=== PATIENT | female | born 1975 | race Caucasian/White ===

== ENCOUNTER 2020-04-26 13:11 | Outpatient (REF) | payer OTHER, SELFPAY ==
--- NOTE | ~2020-04-26 | XR_ITS ---
EXAMINATION: XR FOOT, RIGHT CLINICAL INFORMATION: Pain COMPARISON: None TECHNIQUE: AP, lateral, and oblique views of the right foot. FINDINGS: Bone alignment is normal. No fracture or dislocation is seen. There are small osteophytes at the first MTP joint. Joint spaces are otherwise normal. Soft tissues are normal. XR/XR foot RT min 3V IMPRESSION: Small osteophytes at the first MTP joint otherwise unremarkable exam.
[2020-04-26 14:10] LABS: Hemoglobin 13.4 g/dl (12.0-16.0)
[2020-04-26 14:40] LABS: Alanine Aminotransferase 25 U/L (0-31); Albumin Level 4.8 g/dL (3.5-5.0); Alkaline Phosphatase 58 U/L (39-117); Anion Gap 14 (12-20); Aspartate Amino Transferase 22 U/L (5-31); Bilirubin Direct 0.2 mg/dL (0.0-0.5); Bilirubin Total 0.4 mg/dL (0.0-1.0); Blood Urea Nitrogen 17 mg/dL (9-16); Calcium 9.4 mg/dL (8.4-10.2); Carbon Dioxide 27 mmol/L (22-29); Chloride 103 mmol/L (96-108); Cholesterol 274 mg/dL; Estimated Glomerular Filt Rate > 60; Glucose Fasting 89 mg/dL (60-99); HDL Cholesterol 74 mg/dL; Potassium 4.6 mmol/L (3.3-5.1); Sodium 139 mmol/L (135-145); Total Protein 7.8 g/dL (6.5-8.0); Triglycerides 411 mg/dL
[2020-04-26 15:02] LABS: TSH reflex Free T4 3.11 uIU/mL (0.32-4.0)
== END 2020-04-26 13:12 | disposition home or self-care (01) ==
LOC: HO.HMGCX 13:11
PROVIDERS: PCP Internal Medicine; Visit Provider Internal Medicine
DX: M79.671 Pain in right foot (principal); I10 Essential (primary) hypertension; F41.8 Other specified anxiety disorders; E66.9 Obesity, unspecified
CPT/HCPCS: 36415; 73630; 80048; 80061; 80076; 84443; 85014; 85018

== ENCOUNTER 2020-08-24 11:53 | Outpatient (REF) | payer OTHER, SELFPAY ==
[2020-08-24 13:51] LABS: MANUAL DIFF FLAG NO
[2020-08-24 14:02] LABS: Basophils Percent Auto 0.5 % (0-2); Eosinophils Absolute Auto 0.3 X10*3/uL (0.0-0.4); Eosinophils Percent Auto 5.1 % (0-4); Hematocrit 40.6 % (37-47); Hemoglobin 12.9 g/dl (12.0-16.0); Imm Gran Abs Auto 0.01 X10*3/uL (0.00-0.03); Imm Gran Pct Auto 0.2 % (0.0-0.4); Lymphocytes Absolute Auto 1.6 X10*3/uL (1.2-4.9); Lymphocytes Percent Auto 27.3 % (20-40); Mean Corpuscular HGB Conc 31.8 g/dl (31.0-35.0); Mean Corpuscular Hemoglobin 30.7 pg (27.0-33.0); Mean Corpuscular Volume 96.7 fL (80-98); Mean Platelet Volume 12.3 fL (9.4-12.3); Monocytes Absolute Auto 0.5 X10*3/uL (0.1-1.2); Monocytes Percent Auto 8.6 % (2-11); Neutrophils Absolute Auto 3.3 X10*3/uL (2.0-8.3); Neutrophils Percent Auto 58.3 % (45-73); Platelet Count 200 X10*3/uL (160-400); Red Cell Distribution Width 13.5 % (11.0-16.0); White Blood Count 5.7 X10*3/uL (4.8-10.8)
[2020-08-24 14:27] LABS: Alanine Aminotransferase 27 U/L (0-31); Albumin Level 4.6 g/dL (3.5-5.0); Alkaline Phosphatase 57 U/L (39-117); Anion Gap 14 (12-20); Aspartate Amino Transferase 26 U/L (5-31); Bilirubin Total 0.4 mg/dL (0.0-1.0); Blood Urea Nitrogen 17 mg/dL (9-16); Calcium 9.5 mg/dL (8.4-10.2); Carbon Dioxide 28 mmol/L (22-29); Chloride 105 mmol/L (96-108); Estimated Glomerular Filt Rate > 60; Glucose Random 79 mg/dL (60-115); Potassium 4.7 mmol/L (3.3-5.1); Sodium 142 mmol/L (135-145); Total Protein 7.3 g/dL (6.5-8.0)
[2020-08-24 14:51] LABS: Ferritin 112 ng/mL (10-250); TSH reflex Free T4 3.12 uIU/mL (0.32-4.0)
[2020-08-24 14:54] LABS: Estimated Average Glucose 88 mg/dL; Hemoglobin A1c % 4.7 %
[2020-08-25 08:37] LABS: LDL Cholesterol Direct 114 mg/dL (<100)
== END 2020-08-24 11:54 | disposition home or self-care (01) ==
LOC: HO.HMGCLDS 11:53
PROVIDERS: PCP Internal Medicine; Visit Provider Internal Medicine
DX: L50.9 Urticaria, unspecified (principal); E66.9 Obesity, unspecified; F41.8 Other specified anxiety disorders; D64.9 Anemia, unspecified; F41.1 Generalized anxiety disorder; I10 Essential (primary) hypertension; M79.671 Pain in right foot; R63.1 Polydipsia
CPT/HCPCS: 36415; 80053; 82728; 83036; 83721; 84443; 85025

== ENCOUNTER 2020-09-11 15:07 | Emergency (ER) | payer OTHER, SELFPAY ==
--- NOTE | 2020-09-11 | ECG_ITS ---
Test Reason : CHEST PAIN Blood Pressure : / mmHG Vent. Rate : 066 BPM Atrial Rate : 066 BPM P-R Int : 138 ms QRS Dur : 090 ms QT Int : 406 ms P-R-T Axes : 059 033 036 degrees QTc Int : 425 ms Normal sinus rhythm Normal ECG When compared to the previous EKG of No significant changes seen Referred By: Generic ED Physician Electronically Signed By:Edis Ríos
--- NOTE | ~2020-09-11 | XR_ITS ---
EXAM: Chest x-ray HISTORY: SOB. TECHNIQUE: One view. COMPARISON: Chest 02/18/2018. FINDINGS: The lungs are well-expanded and clear. The heart size and pulmonary vascularity is normal. No gross bony abnormality seen. XR/XR chest 1V IMPRESSION: Unremarkable chest exam.
[2020-09-11 15:11] VITALS: BP 176/106; PULSE 81; RESP 18; TEMP 36.7; O2SAT 100; BMI 35.2
[2020-09-11 18:01] LABS: MANUAL DIFF FLAG NO
[2020-09-11 18:03] LABS: Basophils Percent Auto 0.4 % (0-2); Eosinophils Absolute Auto 0.3 X10*3/uL (0.0-0.4); Eosinophils Percent Auto 4.6 % (0-4); Hematocrit 38.6 % (37-47); Hemoglobin 12.5 g/dl (12.0-16.0); Imm Gran Abs Auto 0.02 X10*3/uL (0.00-0.03); Imm Gran Pct Auto 0.3 % (0.0-0.4); Lymphocytes Absolute Auto 1.5 X10*3/uL (1.2-4.9); Lymphocytes Percent Auto 21.3 % (20-40); Mean Corpuscular HGB Conc 32.4 g/dl (31.0-35.0); Mean Corpuscular Hemoglobin 30.7 pg (27.0-33.0); Mean Corpuscular Volume 94.8 fL (80-98); Mean Platelet Volume 11.6 fL (9.4-12.3); Monocytes Absolute Auto 0.6 X10*3/uL (0.1-1.2); Monocytes Percent Auto 8.6 % (2-11); Neutrophils Absolute Auto 4.6 X10*3/uL (2.0-8.3); Neutrophils Percent Auto 64.8 % (45-73); Platelet Count 200 X10*3/uL (160-400); Red Blood Count 4.07 X10*6/uL (4.20-5.50)
[2020-09-11 18:26] LABS: Alanine Aminotransferase 26 U/L (0-31); Albumin Level 4.5 g/dL (3.5-5.0); Alkaline Phosphatase 48 U/L (39-117); Anion Gap 15 (12-20); Aspartate Amino Transferase 20 U/L (5-31); Bilirubin Total 0.4 mg/dL (0.0-1.0); Blood Urea Nitrogen 21 mg/dL (9-16); Calcium 10.2 mg/dL (8.4-10.2); Carbon Dioxide 27 mmol/L (22-29); Chloride 102 mmol/L (96-108); Creatinine Clr Calc Pharmacy 124.9; Estimated Glomerular Filt Rate > 60; Glucose Random 111 mg/dL (60-115); Potassium 4.9 mmol/L (3.3-5.1); Sodium 139 mmol/L (135-145)
[2020-09-11 18:45] VITALS: BP 160/91; PULSE 70; RESP 16; O2SAT 98
--- NOTE | 2020-09-11 18:53 | ED_ITS ---
HPI - Allergic Reaction General Chief complaint: Dyspnea Stated complaint: diff breathing Time Seen by Provider: 09/11/20 18:49 Source: patient Limitations: no limitations History of Present Illness HPI narrative: History of recurrent allergic reactions for last 6 months seen primary care doctor been on prednisone off and on Benadryl for last few days having the allergy reactions again off prednisone for 1 week patient taking Benadryl feel itchy dizzy short of breath hives all over the body unknown allergen and has not seen an crisis intervention specialist no throat pain no speech problem no difficulty in swallowing Related Data Previous Rx's Medication Instructions Recorded cetirizine 10 mg tablet 10 mg PO DAILY PRN #30 tab 07/21/20 atenolol 50 mg tablet 50 mg PO DAILY 90 Days #90 tab 08/09/20 venlafaxine 150 mg 150 mg PO DAILY 90 Days #90 cap 08/09/20 capsule,extended release 24 hr atenolol 100 mg tablet 100 mg PO DAILY 90 Days #90 tab 08/24/20 buspirone 10 mg tablet 10 mg PO DAILY 30 Days #30 tab 08/24/20 prednisone 20 mg tablet 20 mg PO DAILY 21 Days #21 tab 08/24/20 Allergies Allergy/AdvReac Type Severity Reaction Status Date / Time amoxicillin Allergy Unknown Unknown Verified 08/24/20 11:06 ceftriaxone Allergy Unknown Unknown Verified 08/24/20 11:06 Review of Systems Review of Systems: Yes all other systems are reviewed and are negative FOR[facility]LY [facility] Past Medical History Surgical History History of section History of tonsillectomy Family History Family History Father Cirrhosis Smoker Mother Arthritis Epileptic Bladder cancer Diabetes mellitus Maternal Grandmother Breast cancer Maternal Grandfather No problems noted. Paternal Grandmother Breast cancer Paternal Grandfather No problems noted. Sister No problems noted. Sister No problems noted. Son No problems noted. Son No problems noted. Daughter No problems noted. Daughter No problems noted. Daughter No problems noted. Other Mental health disorder Substance use disorder Social History Social History Housing: House Alcohol intake: current Alcohol intake frequency: a few times a week Patient Tobacco Use Status: Current someday Tobacco user (2 times per week ) Tobacco use type: Cigarette Advance Directives: No Advance Directives Information Provided: No Patient : No Current occupational status: unemployed Physical Exam Vital Signs: Vital Signs: Last Vital Signs Temp 98.0 F 09/11/20 15:11 Pulse 70 09/11/20 18:45 Resp 16 09/11/20 18:45 BP 160/91 H 09/11/20 18:45 Pulse Ox 98 09/11/20 18:45 Body Mass Index 35.2 Appearance: Alert. Oriented X3. No acute distress. Eyes: PERRLA, No Nystagmus ENT: Pharynx normal. Oral Mucosa moist tongue normal oral mucosa normal uvula normal no stridor Neck: Normal inspection. Neck supple. CVS: Normal heart rate and rhythm. Pulses normal. Respiratory: No respiratory distress. Equal air entry bilateral, no wheezing/rales/rhonchi Abdomen: Soft and nontender. Bowel sounds are present, no mass palpable, Skin: Skin warm and dry. Diffuse hives all over the body, Normal skin turgor. Extremities: No lower extremity edema. No calf tenderness Neuro: Oriented X 3. No motor deficit. No sensory deficit. MDM - Allergic Reaction Lab Data Result diagrams: 09/11/20 17:51 09/11/20 17:51 Labs: Lab Results 09/11/20 09/11/20 Range/Units 17:51 17:51 WBC 7.0 (4.8-10.8) X10*3/uL RBC 4.07 L (4.20-5.50) X10*6/uL Hgb 12.5 (12.0-16.0) g/dl Hct 38.6 (37-47) % MCV 94.8 (80-98) fL MCH 30.7 (27.0-33.0) pg MCHC 32.4 (31.0-35.0) g/dl RDW 13.0 (11.0-16.0) % Plt Count 200 (160-400) X10*3/uL MPV 11.6 (9.4-12.3) fL Immature Gran % (Auto) 0.3 (0.0-0.4) % Neut % (Auto) 64.8 (45-73) % Lymph % (Auto) 21.3 (20-40) % Boyle % (Auto) 8.6 (2-11) % Eos % (Auto) 4.6 H (0-4) % Baso % (Auto) 0.4 (0-2) % Lymph # (Auto) 1.5 (1.2-4.9) X10*3/uL Boyle # (Auto) 0.6 (0.1-1.2) X10*3/uL Eos # (Auto) 0.3 (0.0-0.4) X10*3/uL Baso # (Auto) 0.0 (0.0-0.2) X10*3/uL Abs Immat Gran (auto) 0.02 (0.00-0.03) X10*3/uL Absolute Neuts (auto) 4.6 (2.0-8.3) X10*3/uL Absolute Nucleated RBC 0.000 (0.0-0.012) X10*3/uL Nucleated RBC % (auto) 0.0 (0.0-0.2) /100WBC Sodium 139 (135-145) mmol/L Potassium 4.9 (3.3-5.1) mmol/L Chloride 102 (96-108) mmol/L Carbon Dioxide 27 (22-29) mmol/L Anion Gap 15 (12-20) BUN 21 H (9-16) mg/dL Creatinine 0.76 (0.5-1.4) mg/dL Estim Creat Clear Calc 124.9 Estimated GFR > 60 Random Glucose 111 D (60-115) mg/dL Calcium 10.2 D (8.4-10.2) mg/dL Total Bilirubin 0.4 (0.0-1.0) mg/dL AST 20 (5-31) U/L ALT 26 (0-31) U/L Alkaline Phosphatase 48 (39-117) U/L Total Protein 7.0 (6.5-8.0) g/dL Albumin 4.5 (3.5-5.0) g/dL Discharge Plan Discharge Prescriptions: No Action buspirone 10 mg tablet 10 mg PO DAILY 30 Days Qty: 30 RF: 0 prednisone 20 mg tablet 20 mg PO DAILY 21 Days Qty: 21 RF: 0 atenolol 100 mg tablet 100 mg PO DAILY 90 Days Qty: 90 RF: 0 cetirizine [Zyrtec] 10 mg tablet 10 mg PO DAILY PRN (Reason: allergy symptoms) Qty: 30 RF: 0 atenolol 50 mg tablet 50 mg PO DAILY 90 Days Qty: 90 RF: 0 venlafaxine 150 mg capsule,extended release 24hr 150 mg PO DAILY 90 Days Qty: 90 RF: 0
[2020-09-11] MEDS: diphenhydrAMINE HCL 50 MG/ML VIAL 25 MG IVPUSH (19:13)
[2020-09-11] MEDS: dexAMETHasone sod phosphate 10 MG/ML VIAL IVPUSH (19:14)
[2020-09-11] MEDS: Famotidine/PF 20 MG/2 ML VIAL IVPUSH (19:16)
== END 2020-09-11 20:42 | disposition home or self-care (01) ==
PROVIDERS: Emergency Provider Internal Medicine; PCP Internal Medicine
DX: L50.9 Urticaria, unspecified (principal); R06.00 Dyspnea, unspecified
CPT/HCPCS: 36415; 71045; 80053; 85025; 93005; 96374; 96375; 99284; J1100; J1200

== ENCOUNTER 2020-10-06 10:53 | Emergency (ER) | payer OTHER, SELFPAY ==
[2020-10-06 11:17] VITALS: BP 154/89; PULSE 63; RESP 18; TEMP 37.1; O2SAT 97; BMI 36.6
--- NOTE | 2020-10-06 13:04 | ED.ALLEREA ---
HPI - Allergic Reaction General Chief complaint: Allergic Reaction Stated complaint: covered in hives Time Seen by Provider: 10/06/20 13:04 Source: patient Mode of arrival: ambulatory Limitations: no limitations History of Present Illness HPI narrative: 45 y/o female presenting to the ER with ongoing courses of hives. She reports for the last 6 months she has dealt with hives on/off and has required several courses of steroids. Whenever she comes off of the steroids the hives return within 3-4 days. She has not determined a trigger, although she reports being started on atenolol at the same time symptoms started. She has seen her PCP about this several times and she does not want to take her off the atenolol at this time. She has an appointment with an sludge filtration operator in 10 days. She reports intermittent SOB as well, no change in 6 months. No facial or mouth involvement of rash or swelling. She reports morphology of rash changes as well as its location. Photos reviewed on her phone. She just finished a course of steroids 4 days ago and symptoms restarted soon after. She is currently taking singulair and bendaryl QHS. complaint: hives Onset (ago): month(s) Exposure: unknown Symptoms: rash and itching Severity: similar to previous episodes Treatment prior to arrival: benadryl and steroids Previous Allergic Reaction History: none Related Data Previous Rx's Medication Instructions Recorded cetirizine 10 mg tablet (Zyrtec) 10 mg PO DAILY PRN #30 tab 07/21/20 atenolol 100 mg tablet 100 mg PO DAILY 90 Days #90 tab 08/24/20 prednisone 20 mg tablet 20 mg PO DAILY 21 Days #21 tab 08/24/20 montelukast 10 mg tablet 10 mg PO QPM #30 tab 09/11/20 (Singulair) venlafaxine 150 mg 150 mg PO DAILY 90 Days #90 cap 09/12/20 capsule,extended release 24 hr amlodipine 10 mg tablet 10 mg PO DAILY 90 Days #90 tab 09/13/20 buspirone 10 mg tablet 10 mg PO BID 90 Days #180 tab 09/13/20 prednisone 5 mg tablet See Rx Instructions .ROUTE 09/27/20 .COMPLEX #36 tab cetirizine 10 mg tablet (Zyrtec) 10 mg PO DAILY #14 tab 10/06/20 diphenhydramine HCl 25 mg tablet 50 mg PO Q6H PRN #20 tab 10/06/20 (Benadryl Allergy) prednisone 50 mg tablet 50 mg PO DAILY #10 tab 10/06/20 Allergies Allergy/AdvReac Type Severity Reaction Status Date / Time amoxicillin Allergy Unknown Unknown Verified 10/06/20 11:17 ceftriaxone Allergy Unknown Unknown Verified 10/06/20 11:17 Review of Systems Constitutional: Constitutional: Denies chills and Denies fever(s) Eyes: Eyes: Reports no additional eye complaints and Denies itchy eyes ENT: Denies dizziness, Denies lip swelling, Denies mouth lesions, Denies nasal congestion, Denies sore throat, Denies throat swelling and Denies tongue swelling Cardiovascular: Cardiovascular: Denies chest pain, Denies rapid heart rate and Reports dyspnea Respiratory: Respiratory: Denies cough, Denies pain on inspiration, Reports dyspnea and Denies wheezing Gastrointestinal: Gastrointestinal: Denies abdominal pain, Denies diarrhea, Denies nausea and Denies vomiting Musculoskeletal: Musculoskeletal: Denies myalgias, Denies muscle cramps and Denies tingling Integumentary/Breasts: Skin/Breast: Reports lesions, Reports erythema, Reports rash and Reports skin pain Neurologic: Denies dizziness and Denies tingling Psychiatric: Psychiatric: Reports anxiety Allergic/Immunologic: Allergic/Immunologic: Reports urticaria, Denies itchy eyes, Denies lip swelling, Denies throat swelling, Denies tongue swelling and Denies wheezing PMFSH Past Medical History Attestation statement: The following information was validated with the patient. Surgical History History of section History of tonsillectomy Family History Family History Father Cirrhosis Smoker Mother Arthritis Epileptic Bladder cancer Diabetes mellitus Maternal Grandmother Breast cancer Maternal Grandfather No problems noted. Paternal Grandmother Breast cancer Paternal Grandfather No problems noted. Sister No problems noted. Sister No problems noted. Son No problems noted. Son No problems noted. Daughter No problems noted. Daughter No problems noted. Daughter No problems noted. Other Mental health disorder Substance use disorder Social History Social History Housing: House Alcohol intake: current Alcohol intake frequency: a few times a week Patient Tobacco Use Status: Current someday Tobacco user (2 times per week ) Tobacco use type: Cigarette Advance Directives: No Advance Directives Information Provided: Yes Patient : No Current occupational status: unemployed Physical Exam Vital Signs: Vital Signs: Last Vital Signs Temp 98.7 F 10/06/20 11:17 Pulse 63 10/06/20 11:17 Resp 18 10/06/20 11:17 BP 154/89 H 10/06/20 11:17 Pulse Ox 97 10/06/20 11:17 Body Mass Index 36.6 Const: General: cooperative, healthy appearing, comfortable and no acute distress HENMT: Head: Yes normal to inspection, Yes normocephalic and Yes atraumatic Ears: hearing grossly normal bilaterally and external ears normal General nose exam: Normal external nose present Face and sinus: Yes normal facial exam and Yes face symmetric Mouth: Normal oral and palatal mucosa present, lip normal, tongue normal, oropharynx normal and moist mucous membranes Teeth and gingiva: dentition normal and gingiva normal Throat: Yes posterior oropharynx normal, Yes tonsils normal and Yes uvula midline Eyes: General: appearance normal, both eyes and all related structures Neck: Neck: Yes normal visual inspection and Yes no lymphadenopathy Chest: Chest palpation & inspection: normal inspection of the chest Resp: Effort & Inspection: normal respiratory effort and able to speak in complete sentences Auscultation: clear to auscultation bilaterally Skin: General skin exam: erythema Lesions: no lesions Rashes: rashes noted urticaria diffuse multiple locations arrangement Trauma: no lacerations or abrasions Hair: normal Psych: Appearance: grossly normal and well kempt Affect: Animated affect present Attitude: cooperative Thought process: Normal thought process present Course Course Course Narrative: 45 y/o female returning to the ER with worsening pruritic rash diffusely on her body since being off of prednisone. Trigger has not been identified and she has an appointment with an origination specialist for further workup. Will provide additional course of prednisone to get her through until she can have further workup done. She has no evidence of angioedema at this time. Will add Zyrtec to her regimen. Stable for discharge home with plan for outpatient follow up. Referral to Dermatology also provided. Patient agrees with plan. Critical Care Time Critical Care Time Critical Care Time: No Discharge Plan Discharge Clinical Impression: Chronic urticaria Patient Disposition: Home, Self-Care Instructions: Urticaria (ED) Additional Instructions: Take the prescribed prednisone as directed starting tomorrow. Start cetirizine today and take every morning. Continue taking Benadryl 25-50 mg every 6 hours as needed. Follow up with Immuniologist as scheduled on 10/17. Recommend following up with Dermatology as well. Name and number listed below. If you develop new or worsening symptoms call 911 or come back to the ER for further evaluation. Prescriptions: New prednisone 50 mg tablet 50 mg PO DAILY Qty: 10 RF: 0 cetirizine [Zyrtec] 10 mg tablet 10 mg PO DAILY Qty: 14 RF: 0 diphenhydramine HCl [Benadryl Allergy] 25 mg tablet 50 mg PO Q6H PRN (Reason: itching) Qty: 20 RF: 0 No Action venlafaxine 150 mg capsule,extended release 24hr 150 mg PO DAILY 90 Days Qty: 90 RF: 0 prednisone 5 mg tablet See Rx Instructions .ROUTE .COMPLEX Qty: 36 RF: 0 montelukast [Singulair] 10 mg tablet 10 mg PO QPM Qty: 30 RF: 0 prednisone 20 mg tablet 20 mg PO DAILY 21 Days Qty: 21 RF: 0 atenolol 100 mg tablet 100 mg PO DAILY 90 Days Qty: 90 RF: 0 cetirizine [Zyrtec] 10 mg tablet 10 mg PO DAILY PRN (Reason: allergy symptoms) Qty: 30 RF: 0 amlodipine 10 mg tablet 10 mg PO DAILY 90 Days Qty: 90 RF: 0 buspirone 10 mg tablet 10 mg PO BID 90 Days Qty: 180 RF: 0 Referrals: Yulissa Torres PA-C [Physician Office Sweeper] - 1 week (chronic urticaria) Interventions: ED Discharge Assessment Last Done: 10/06/20 14:25 Discharge Date/Time: 10/06/20 14:25
[2020-10-06] MEDS: methylPREDNISolone Sod Succ 125 MG/2 ML VIAL 120 MG IM (14:07)
== END 2020-10-06 14:25 | disposition home or self-care (01) ==
PROVIDERS: Emergency Provider Emergency Medicine; PCP Internal Medicine
DX: L50.0 Allergic urticaria (principal); Z79.899 Other long term (current) drug therapy; F17.210 Nicotine dependence, cigarettes, uncomplicated; Z71.6 Tobacco abuse counseling
CPT/HCPCS: 96372; 96374; 99283; J2930

== ENCOUNTER 2021-02-20 11:23 | Outpatient (REF) | payer OTHER, SELFPAY ==
[2021-02-21 09:31] LABS: BV Int Neg Control Negative (Negative); BV Int Pos Control Positive (Positive)
== END 2021-02-20 11:24 | disposition home or self-care (01) ==
LOC: HO.LNP 11:23
PROVIDERS: Visit Provider Physician Assistant
DX: N76.0 Acute vaginitis (principal)
CPT/HCPCS: 87480; 87510; 87660

== ENCOUNTER 2021-04-18 10:07 | Emergency (ER) | payer OTHER, SELFPAY ==
--- NOTE | ~2021-04-18 | XR_ITS ---
EXAMINATION: XR CHEST CLINICAL INFORMATION: Chest pain COMPARISON: Previous chest x-ray most recent September 2020 TECHNIQUE: 2 views of the chest were obtained. FINDINGS: No significant abnormality is noted involving the heart, lungs, mediastinum, bony thorax or soft tissues. XR/XR chest 2V IMPRESSION: Unremarkable examination.
--- NOTE | 2021-04-18 10:09 | ED_ITS ---
HPI - Chest Pain General Stated Complaint: CHEST PAIN,DIZZY,HIGH BP FROM DR OFFICE Time Seen by Provider: 04/18/21 10:09 Source: patient Mode of arrival: EMS Limitations: no limitations Related Data Previous Rx's Medication Instructions Recorded cetirizine 10 mg tablet (Zyrtec) 10 mg PO DAILY PRN #30 tab 07/21/20 montelukast 10 mg tablet 10 mg PO QPM #30 tab 09/11/20 (Singulair) amlodipine 10 mg tablet 10 mg PO DAILY 90 Days #90 tab 09/13/20 cetirizine 10 mg tablet (Zyrtec) 10 mg PO DAILY #14 tab 10/06/20 diphenhydramine HCl 25 mg tablet 50 mg PO Q6H PRN #20 tab 10/06/20 (Benadryl Allergy) hydrocortisone acetate 25 mg 25 mg MN BID 6 Days #12 ea 01/31/21 rectal suppository atenolol 100 mg tablet 100 mg PO DAILY 90 Days #90 tab 02/20/21 fluconazole 150 mg tablet 150 mg PO Q3D 0 Days #2 tab 02/20/21 (Diflucan) hydrocortisone-pramoxine 2.5 %-1 % 1 appl MN TID-QID PRN #30 g 02/20/21 rectal cream (Analpram-HC) venlafaxine 150 mg 150 mg PO DAILY 90 Days #90 cap 02/20/21 capsule,extended release 24 hr buspirone 10 mg tablet 10 mg PO BID 30 Days #60 tab 04/11/21 Allergies Allergy/AdvReac Type Severity Reaction Status Date / Time amoxicillin Allergy Unknown Unknown Verified 02/20/21 09:40 ceftriaxone Allergy Unknown Unknown Verified 02/20/21 09:40 [facility] Past Medical History Surgical History History of section History of tonsillectomy Family History Family History Father Cirrhosis Smoker Mother Arthritis Epileptic Bladder cancer Diabetes mellitus Maternal Grandmother Breast cancer Maternal Grandfather No problems noted. Paternal Grandmother Breast cancer Paternal Grandfather No problems noted. Sister No problems noted. Sister No problems noted. Son No problems noted. Son No problems noted. Daughter No problems noted. Daughter No problems noted. Daughter No problems noted. Other Mental health disorder Substance use disorder Social History Social History Housing: House Alcohol intake: current Alcohol intake frequency: a few times a week Patient Tobacco Use Status: Current someday Tobacco user (2 times per week ) Tobacco use type: Cigarette Current occupational status: unemployed Discharge Plan Discharge Prescriptions: No Action hydrocortisone acetate 25 mg suppository 25 mg MN BID 6 Days Qty: 12 0RF venlafaxine 150 mg capsule,extended release 24hr 150 mg PO DAILY 90 Days Qty: 90 0RF atenolol 100 mg tablet 100 mg PO DAILY 90 Days Qty: 90 0RF buspirone 10 mg tablet 10 mg PO BID 30 Days Qty: 60 0RF cetirizine [Zyrtec] 10 mg tablet 10 mg PO DAILY Qty: 14 0RF diphenhydramine HCl [Benadryl Allergy] 25 mg tablet 50 mg PO Q6H PRN (Reason: itching) Qty: 20 0RF montelukast [Singulair] 10 mg tablet 10 mg PO QPM Qty: 30 0RF cetirizine [Zyrtec] 10 mg tablet 10 mg PO DAILY PRN (Reason: allergy symptoms) Qty: 30 0RF amlodipine 10 mg tablet 10 mg PO DAILY 90 Days Qty: 90 0RF hydrocortisone-pramoxine [Analpram-HC] 2.5-1 % cream 1 appl MN TID-QID PRN (Reason: itching) Qty: 30 0RF fluconazole [Diflucan] 150 mg tablet 150 mg PO Q3D 0 Days Qty: 2 0RF Rx Instructions: 1 pill with symptoms, take 2nd dose if symptoms persist after 72 hours
[2021-04-18 10:14] VITALS: BP 168/102; PULSE 50; O2SAT 100
[2021-04-18 10:23] VITALS: BP 163/84; PULSE 44; RESP 18; TEMP 36.9; O2SAT 98; BMI 35.9
--- NOTE | 2021-04-18 10:28 | ECG_ITS ---
Test Reason : CHEST PAIN Blood Pressure : / mmHG Vent. Rate : 039 BPM Atrial Rate : 039 BPM P-R Int : 148 ms QRS Dur : 098 ms QT Int : 444 ms P-R-T Axes : 059 029 026 degrees QTc Int : 357 ms Marked sinus bradycardia with Premature atrial complexes Nonspecific T wave abnormality Abnormal ECG When compared with ECG of 11-SEP-2020 18:48, Premature atrial complexes are now Present Vent. rate has decreased BY 27 BPM QT has shortened Referred By: Nicolette Kenyon Electronically Signed By:YOVANI MORTON MD
--- NOTE | 2021-04-18 10:40 | ED_ITS ---
HPI - Chest Pain General Chief Complaint: Chest Pain Stated Complaint: CHEST PAIN,DIZZY,HIGH BP FROM DR OFFICE Time Seen by Provider: 04/18/21 10:09 Source: patient and EMS Mode of arrival: EMS Limitations: no limitations History of Present Illness HPI narrative: 45 yo female with pmh of hypertension, anxiety, anemia, obesity, depression here with reports of feeling unwell since yesterday. Patient reports yesterday she started to have a mild cough, shortness of breath, subjective fevers, chills, body aches. This morning when she woke up she felt lightheaded and dizzy so she decided to go to the urgent care to get a COVID test. She has received [employer] vaccine x2. While she was at urgent care she had her blood pressure measured and it was 190/100. Patient tells me that after she was made aware that her blood pressure was elevated she started to experience some chest tightness. EMS was called. Her COVID screen at urgent care was negative. EMS gave the patient 324 mg of aspirin and 1 sublingual nitro. Patient tells me that she is feeling improved. Her chest tightness is resolved. She does not feel lightheaded anymore. She does have generalized malaise which she has felt since yesterday. Related Data Previous Rx's Medication Instructions Recorded cetirizine 10 mg tablet (Zyrtec) 10 mg PO DAILY PRN #30 tab 07/21/20 montelukast 10 mg tablet 10 mg PO QPM #30 tab 09/11/20 (Singulair) amlodipine 10 mg tablet 10 mg PO DAILY 90 Days #90 tab 09/13/20 cetirizine 10 mg tablet (Zyrtec) 10 mg PO DAILY #14 tab 10/06/20 diphenhydramine HCl 25 mg tablet 50 mg PO Q6H PRN #20 tab 10/06/20 (Benadryl Allergy) hydrocortisone acetate 25 mg 25 mg HI BID 6 Days #12 ea 01/31/21 rectal suppository atenolol 100 mg tablet 100 mg PO DAILY 90 Days #90 tab 02/20/21 fluconazole 150 mg tablet 150 mg PO Q3D 0 Days #2 tab 02/20/21 (Diflucan) hydrocortisone-pramoxine 2.5 %-1 % 1 appl HI TID-QID PRN #30 g 02/20/21 rectal cream (Analpram-HC) venlafaxine 150 mg 150 mg PO DAILY 90 Days #90 cap 02/20/21 capsule,extended release 24 hr buspirone 10 mg tablet 10 mg PO BID 30 Days #60 tab 04/11/21 lisinopril 20 mg tablet 20 mg PO DAILY #30 tab 04/18/21 Allergies Allergy/AdvReac Type Severity Reaction Status Date / Time amoxicillin Allergy Unknown Unknown Verified 02/20/21 09:40 ceftriaxone Allergy Unknown Unknown Verified 02/20/21 09:40 Review of Systems Review of Systems: Yes all other systems are reviewed and are negative Constitutional: Constitutional: Reports no additional constitutional complaints, Reports body ache(s), Reports chills, Reports fever(s) (subjective ), Denies headache(s) and Denies weakness Eyes: Eyes: Reports no additional eye complaints and Denies change in vision ENT: Reports system reviewed and no additional complaints, except as documented, Reports dizziness, Denies headache(s), Denies nasal congestion, Denies nasal discharge and Denies neck pain Cardiovascular: Cardiovascular: Reports no additional cardiovascular complaints, Reports chest pain, Denies leg edema and Reports dyspnea Respiratory: Respiratory: Reports no additional respiratory complaints, Denies cough and Reports dyspnea Gastrointestinal: Gastrointestinal: Reports no additional gastrointestinal complaints, Denies abdominal pain, Denies diarrhea, Denies nausea and Denies vomiting Genitourinary: Genitourinary: Reports no additional female genitourinary complaints and Denies urinary incontinence Musculoskeletal: Musculoskeletal: Reports no additional musculoskeletal complaints, Denies back pain, Denies arthralgias, Denies joint swelling, Denies neck pain, Denies numbness and Denies tingling Integumentary/Breasts: Skin/Breast: Reports system reviewed and no additional complaints, except as docu and Denies rash Neurologic: Reports system reviewed and no additional complaints, except as do cumented, Denies Abnormal speech present, Reports dizziness, Denies headache(s), Denies numbness, Denies tingling and Denies weakness PMFSH Past Medical History Attestation statement: The following information was validated with the patient. Source: old records reviewed and nursing notes reviewed Surgical History History of section History of tonsillectomy Family History Family History Father Cirrhosis Smoker Mother Arthritis Epileptic Bladder cancer Diabetes mellitus Maternal Grandmother Breast cancer Maternal Grandfather No problems noted. Paternal Grandmother Breast cancer Paternal Grandfather No problems noted. Sister No problems noted. Sister No problems noted. Son No problems noted. Son No problems noted. Daughter No problems noted. Daughter No problems noted. Daughter No problems noted. Other Mental health disorder Substance use disorder Social History Social History (Updated 04/18/21 @ 12:12 by Brit Rey NP) Housing: House Alcohol intake: current Alcohol intake frequency: a few times a week Patient Tobacco Use Status: Current someday Tobacco user (2 times per week ) Tobacco use type: Cigarette Advance Directives: No Advance Directives Information Provided: No Patient : No Current occupational status: unemployed Physical Exam Vital Signs: Vital Signs: Last Vital Signs Temp 98.2 F 04/18/21 12:18 Pulse 51 04/18/21 12:18 Resp 13 04/18/21 12:18 BP 144/76 H 04/18/21 12:18 Pulse Ox 99 04/18/21 12:18 BMI result Body Mass Index 35.9 Const: General: cooperative, healthy appearing, comfortable and no acute distress Orientation/consciousness: patient oriented x3 Limitations: no limitations HENMT: Head: Yes normal to inspection Ears: hearing grossly normal bilaterally and TM's normal bilaterally General nose exam: Normal external nose present Face and sinus: Yes normal facial exam Mouth: Normal oral and palatal mucosa present Throat: Yes posterior oropharynx normal and Yes tonsils normal Eyes: General: appearance normal, both eyes and all related structures Pupils: Equal, round and reactive pupils present Neck: Neck: Yes normal visual inspection, Yes full ROM, Yes no lymphadenopathy and Yes no meningeal signs Chest: Chest palpation & inspection: normal inspection of the chest Resp: Effort & Inspection: normal respiratory effort Auscultation: clear to auscultation bilaterally Cardio: Rate: regular rate Rhythm: regular rhythm Peripheral pulses: Peripheral pulses 2+ throughout GI: Inspection: Yes normal to inspection Palpation (GI): Soft to palpation and nontender Auscultation: normal bowel sounds Back/Spine/Pelvis: Thoracic/Lumbar Spine: thoracic and lumbar spine normal to inspection Skin: General skin exam: no rashes or lesions noted Neuro: General: patient oriented x3, no meningeal signs, no focal motor deficits and normal sensation to monofilament Cranial nerves: Yes CN's II-XII intact bilaterally, Yes Equal, round and reactive pupils present, Yes Bilaterally intact EOM present, Yes Nystagmus not present, Yes Normal facial strength present and Yes Midline tongue present Cognition (Neuro): normal cognition Speech: No Abnormal speech present Gait exam (Neuro): Normal gait present Motor exam (neuro): 5/5 motor strength present throughout Sensory Exam: Normal double simultaneous stimulation for sensation Coordination: [id number] test normal, [id number] test normal and tandem gait normal Extrem: General: Yes normal to inspection, Yes no pedal edema and Yes no calf tenderness Course Course Course Narrative: 45 yo female here with reports of generalized malaise since yesterday with subjective fevers, chills, shortness of breath, cough. This morning woke with feeling lightheaded and dizzy and then after being made aware that her blood pressure was elevated at urgent care she developed some chest tightness. There was no associated vomiting with the chest tightness or nausea or diaphoresis. Patient received aspirin and nitro prior to arrival and is feeling improved. Her chest tightness has resolved. She is not complaining of feeling lightheaded. She is complaining of generalized malaise which she tells me has continued through since yesterday. On arrival the patient is noted to be bradycardic with a rate of 39-45. It is sinus. At this time she is complaining of any dizziness, weakness. She denies any history of syncopal episodes. She tells me she has been on atenolol 100 mg for her blood pressure for more than 1 year. Patient tells me that she has been prescribed this for her high blood pressure although it does not seem to help. She also takes Norvasc 10 mg. Will check labs, EKG, chest x-ray, COVID screen 1200-labs are unremarkable. EKG shows sinus bradycardia with no other acute finding. Chest x-ray and COVID screen are negative. Plan to repeat 3 hour troponin. Patient has had no additional episodes of chest pain is feeling well. Bradycardia is likely secondary to beta-emilio. Anticipate discontinuing the beta-emilio on discharge and initiating a secondary antihypertensive 1440-troponin x2 flat. Patient has had no additional episodes of chest pain and she feels well. Her heart rate is now around 45-50. She is asymptomatic. Her blood pressure has improved to 140 4/76 without intervention. We discussed discontinuing her atenolol due to bradycardia. Will change her to lisinopril 20 mg. Recommend she follow-up with her primary care doctor in 1 week for blood pressure check and re-evaluation. Reviewed worrisome signs and symptoms of when to return to the emergency department. Comfortable discharge home. MDM - Chest Pain MDM Narrative Medical decision making narrative: ACS, PE, PNA, viral syndrome Medical Records Data Attestation: I reviewed the patient's medical records. Lab Data Attestation: I reviewed the patient's lab results. Result diagrams: 04/18/21 11:04 04/18/21 11:04 Labs: Lab Results 04/18/21 04/18/21 04/18/21 Range/Units 11:04 11:04 11:04 WBC 4.2 L (4.8-10.8) X10*3/uL RBC 4.09 L (4.20-5.50) X10*6/uL Hgb 12.5 (12.0-16.0) g/dl Hct 37.4 (37.0-47.0) % MCV 91.4 (80.0-98.0) fL MCH 30.6 (27.0-33.0) pg MCHC 33.4 (31.0-35.0) g/dl RDW 12.7 (11.0-16.0) % Plt Count 200 (160-400) X10*3/uL MPV 11.3 (9.4-12.3) fL Immature Gran % (Auto) 0.2 (0.0-0.4) % Neut % (Auto) 62.2 (45-73) % Lymph % (Auto) 24.6 (20-40) % Hunt % (Auto) 10.6 (2-11) % Eos % (Auto) 1.9 (0-4) % Baso % (Auto) 0.5 (0-2) % Lymph # (Auto) 1.0 L (1.2-4.9) X10*3/uL Hunt # (Auto) 0.4 (0.1-1.2) X10*3/uL Eos # (Auto) 0.1 (0.0-0.4) X10*3/uL Baso # (Auto) 0.0 (0.0-0.2) X10*3/uL Abs Immat Gran (auto) 0.01 (0.00-0.03) X10*3/uL Absolute Neuts (auto) 2.6 (2.0-8.3) x10*3/uL Absolute Nucleated RBC 0.000 (0.0-0.012) X10*3/uL Nucleated RBC % (auto) 0.0 (0.0-0.2) /100WBC PT 11.0 (9.9-13.0) SEC INR 1.0 (0.9-1.1) D-Dimer High Sensitivty < 150 NG/ML Sodium 140 (135-145) mmol/L Potassium 4.7 (3.3-5.1) mmol/L Chloride 105 (96-108) mmol/L Carbon Dioxide 29 (22-29) mmol/L Anion Gap 11 L (12-20) BUN 13 (9-16) mg/dL Creatinine 0.70 (0.5-1.4) mg/dL Estim Creat Clear Calc 137.0 Estimated GFR > 60 Random Glucose 108 (60-115) mg/dL Calcium 10.0 (8.4-10.2) mg/dL Magnesium 1.8 (1.6-2.6) mg/dL Total Bilirubin 0.4 (0.0-1.0) mg/dL Direct Bilirubin 0.2 (0.0-0.5) mg/dL AST 21 (5-31) U/L ALT 24 (0-31) U/L Alkaline Phosphatase 49 (39-117) U/L Troponin I High Sens (<3.5-17.0) ng/L Total Protein 7.0 (6.5-8.0) g/dL Albumin 4.3 (3.5-5.0) g/dL COVID-19 ([facility]) (Negative) COVID-19 Clin Com 04/18/21 04/18/21 04/18/21 Range/Units 11:04 11:04 13:54 WBC (4.8-10.8) X10*3/uL RBC (4.20-5.50) X10*6/uL Hgb (12.0-16.0) g/dl Hct (37.0-47.0) % MCV (80.0-98.0) fL MCH (27.0-33.0) pg MCHC (31.0-35.0) g/dl RDW (11.0-16.0) % Plt Count (160-400) X10*3/uL MPV (9.4-12.3) fL Immature Gran % (Auto) (0.0-0.4) % Neut % (Auto) (45-73) % Lymph % (Auto) (20-40) % Hunt % (Auto) (2-11) % Eos % (Auto) (0-4) % Baso % (Auto) (0-2) % Lymph # (Auto) (1.2-4.9) X10*3/uL Hunt # (Auto) (0.1-1.2) X10*3/uL Eos # (Auto) (0.0-0.4) X10*3/uL Baso # (Auto) (0.0-0.2) X10*3/uL Abs Immat Gran (auto) (0.00-0.03) X10*3/uL Absolute Neuts (auto) (2.0-8.3) x10*3/uL Absolute Nucleated RBC (0.0-0.012) X10*3/uL Nucleated RBC % (auto) (0.0-0.2) /100WBC PT (9.9-13.0) SEC INR (0.9-1.1) D-Dimer High Sensitivty NG/ML Sodium (135-145) mmol/L Potassium (3.3-5.1) mmol/L Chloride (96-108) mmol/L Carbon Dioxide (22-29) mmol/L Anion Gap (12-20) BUN (9-16) mg/dL Creatinine (0.5-1.4) mg/dL Estim Creat Clear Calc Estimated GFR Random Glucose (60-115) mg/dL Calcium (8.4-10.2) mg/dL Magnesium (1.6-2.6) mg/dL Total Bilirubin (0.0-1.0) mg/dL Direct Bilirubin (0.0-0.5) mg/dL AST (5-31) U/L ALT (0-31) U/L Alkaline Phosphatase (39-117) U/L Troponin I High Sens < 3.5 < 3.5 (<3.5-17.0) ng/L Total Protein (6.5-8.0) g/dL Albumin (3.5-5.0) g/dL COVID-19 ([facility]) Negative (Negative) COVID-19 Clin Com See Note Imaging Data Chest x-ray: Attestation: I personally reviewed and interpreted this imaging study as follows: My impression: XAMINATION: XR CHEST CLINICAL INFORMATION: Chest pain COMPARISON: Previous chest x-ray most recent September 2020 TECHNIQUE: 2 views of the chest were obtained. FINDINGS: No significant abnormality is noted involving the heart, lungs, mediastinum, bony thorax or soft tissues. XR/XR chest 2V IMPRESSION: Unremarkable examination. ECG Data ECG #1: Attestation: I personally reviewed and interpreted this ECG as follows: ECG interpretation date: 04/18/21 ECG interpretation time: 10:26 Interpretation: Sinus bradycardia with PACs with a rate of 39, nonspecific ST changes. Normal QRS, normal QT Discharge Plan Discharge Clinical Impression: Atypical chest pain Patient Disposition: Home, Self-Care Instructions: Chest Pain (ED) Additional Instructions: Stop taking her atenolol Start taking lisinopril Monitor blood pressure at home. I do expect it is going to continue to run high over the next week. You need to see your primary care doctor in 1 week to have her recheck your blood pressure and adjust medication accordingly Your heart rate was also low. Consider buying a pulse oximeter and monitoring this at home Prescriptions: New lisinopril 20 mg tablet 20 mg PO DAILY Qty: 30 0RF No Action hydrocortisone acetate 25 mg suppository 25 mg HI BID 6 Days Qty: 12 0RF venlafaxine 150 mg capsule,extended release 24hr 150 mg PO DAILY 90 Days Qty: 90 0RF atenolol 100 mg tablet 100 mg PO DAILY 90 Days Qty: 90 0RF buspirone 10 mg tablet 10 mg PO BID 30 Days Qty: 60 0RF cetirizine [Zyrtec] 10 mg tablet 10 mg PO DAILY Qty: 14 0RF diphenhydramine HCl [Benadryl Allergy] 25 mg tablet 50 mg PO Q6H PRN (Reason: itching) Qty: 20 0RF montelukast [Singulair] 10 mg tablet 10 mg PO QPM Qty: 30 0RF cetirizine [Zyrtec] 10 mg tablet 10 mg PO DAILY PRN (Reason: allergy symptoms) Qty: 30 0RF amlodipine 10 mg tablet 10 mg PO DAILY 90 Days Qty: 90 0RF hydrocortisone-pramoxine [Analpram-HC] 2.5-1 % cream 1 appl HI TID-QID PRN (Reason: itching) Qty: 30 0RF fluconazole [Diflucan] 150 mg tablet 150 mg PO Q3D 0 Days Qty: 2 0RF Rx Instructions: 1 pill with symptoms, take 2nd dose if symptoms persist after 72 hours Referrals: Deny Marmolejo MD [Primary Care Provider] - 1 week
[2021-04-18 11:08] VITALS: BP 162/93; PULSE 44; RESP 15; TEMP 36.8; O2SAT 99
[2021-04-18 11:16] LABS: MANUAL DIFF FLAG NO
[2021-04-18 11:21] LABS: Basophils Percent Auto 0.5 % (0-2); Eosinophils Absolute Auto 0.1 X10*3/uL (0.0-0.4); Eosinophils Percent Auto 1.9 % (0-4); Hematocrit 37.4 % (37.0-47.0); Hemoglobin 12.5 g/dl (12.0-16.0); Imm Gran Abs Auto 0.01 X10*3/uL (0.00-0.03); Imm Gran Pct Auto 0.2 % (0.0-0.4); Lymphocytes Percent Auto 24.6 % (20-40); Mean Corpuscular HGB Conc 33.4 g/dl (31.0-35.0); Mean Corpuscular Hemoglobin 30.6 pg (27.0-33.0); Mean Corpuscular Volume 91.4 fL (80.0-98.0); Mean Platelet Volume 11.3 fL (9.4-12.3); Monocytes Absolute Auto 0.4 X10*3/uL (0.1-1.2); Monocytes Percent Auto 10.6 % (2-11); Neutrophils Absolute Auto 2.6 x10*3/uL (2.0-8.3); Neutrophils Percent Auto 62.2 % (45-73); Platelet Count 200 X10*3/uL (160-400); Red Blood Count 4.09 X10*6/uL (4.20-5.50); Red Cell Distribution Width 12.7 % (11.0-16.0); White Blood Count 4.2 X10*3/uL (4.8-10.8)
[2021-04-18 11:36] LABS: Alanine Aminotransferase 24 U/L (0-31); Albumin Level 4.3 g/dL (3.5-5.0); Alkaline Phosphatase 49 U/L (39-117); Anion Gap 11 (12-20); Aspartate Amino Transferase 21 U/L (5-31); Bilirubin Direct 0.2 mg/dL (0.0-0.5); Bilirubin Total 0.4 mg/dL (0.0-1.0); Blood Urea Nitrogen 13 mg/dL (9-16); Carbon Dioxide 29 mmol/L (22-29); Chloride 105 mmol/L (96-108); D Dimer High Sensitivity < 150 NG/ML; Estimated Glomerular Filt Rate > 60; Glucose Random 108 mg/dL (60-115); Magnesium 1.8 mg/dL (1.6-2.6); Potassium 4.7 mmol/L (3.3-5.1); Sodium 140 mmol/L (135-145)
[2021-04-18 11:37] LABS: COVID-19 Test Negative (Negative); IDNOW Serial# 9DD0AD1C
[2021-04-18 11:39] LABS: Troponin-I High Sensitivity < 3.5 ng/L (<3.5-17.0)
[2021-04-18 12:18] VITALS: BP 144/76; PULSE 51; RESP 13; TEMP 36.8; O2SAT 99
[2021-04-18 14:20] LABS: Troponin-I High Sensitivity < 3.5 ng/L (<3.5-17.0)
== END 2021-04-18 15:00 | disposition home or self-care (01) ==
PROVIDERS: Nurse Practitioner Family; Emergency Provider Emergency Medicine; PCP Internal Medicine
DX: R07.89 Other chest pain (principal); I10 Essential (primary) hypertension; Z20.822 Contact with and (suspected) exposure to COVID-19; F17.200 Nicotine dependence, unspecified, uncomplicated
CPT/HCPCS: 36415; 71046; 80048; 80076; 83735; 84484; 85025; 85379; 85610; 87635; 93005; 99283; 99284

== ENCOUNTER 2021-07-28 09:51 | Outpatient (REF) | payer OTHER, SELFPAY ==
[2021-07-28 10:17] LABS: Binax Now Covid-19 Ag Negative (Negative); Binax Performed by: HO.BONILM
[2021-07-28 10:18] LABS: Binax Internal Control QC Valid
== END 2021-07-28 09:52 | disposition home or self-care (01) ==
LOC: HO.HMGCLDS 09:51
PROVIDERS: PCP Internal Medicine; Visit Provider Internal Medicine
DX: Z20.822 Contact with and (suspected) exposure to COVID-19 (principal)
CPT/HCPCS: 87811

== ENCOUNTER 2021-08-14 16:47 | Outpatient (REF) | payer OTHER, SELFPAY ==
--- NOTE | ~2021-08-14 | XR_ITS ---
EXAMINATION: XR HAND, LEFT CLINICAL INFORMATION: Left finger pain COMPARISON: None TECHNIQUE: PA, lateral, and oblique views of the left hand. FINDINGS: Lucent lesion of bone without appreciable matrix mineralization in the base of the fourth proximal phalanx with endosteal scalloping measuring approximately 1.6 cm in length. There is mild deformity/broadening of the proximal phalanx which may represent sequela of remote healed fracture. No acute fracture. No periosteal reaction or obvious extraosseous soft tissue mass. No other osseous lesion. The joint spaces throughout the hand and wrist are maintained. Minimal osteophyte formation at the first CMC joint and thumb IP joint compatible with mild osteoarthritis. No erosions or chondrocalcinosis. XR/XR hand LT min 3V IMPRESSION: 1. Osteolytic lesion with endosteal scalloping in the base of the fourth proximal phalanx measuring approximately 1.6 cm in length, likely a enchondroma. Mild deformity of the proximal phalanx may represent sequela of remote healed fracture. Correlate clinically. 2. No acute fracture is identified. If there is pain referable to the lesion, would suggest orthopedic consultation.
== END 2021-08-14 16:48 | disposition home or self-care (01) ==
LOC: HO.HMGCX 16:47
PROVIDERS: PCP Internal Medicine; Visit Provider Physician Assistant
DX: M79.645 Pain in left finger(s) (principal)
CPT/HCPCS: 73130

== ENCOUNTER 2021-11-16 11:30 | Outpatient (REF) | payer OTHER, SELFPAY ==
[2021-11-16 11:59] LABS: Appearance Urine Cloudy; Color Urine Yellow; Glucose Urine UA Negative (Negative); Leukocyte Esterase Urine Moderate (2+) (Negative); Nitrite Urine Negative (Negative); PH 5.5 (5.0-9.0); UMIC TRIGGER UACC YES; Urine Blood Negative (Negative); Urine Ketones Negative (Negative); Urine Protein Negative (Neg-Trace)
[2021-11-16 12:03] LABS: Bacteria Urine 3+ (None Seen); Hyaline Casts Urine 0-2 /LPF (0-2); RBC Urine 0-2 /HPF (0-2); UACC Culture Trigger YES; WBC Urine 21-50 /HPF (0-5)
== END 2021-11-16 11:31 | disposition home or self-care (01) ==
LOC: HO.LNP 11:30
PROVIDERS: Visit Provider Physician Assistant Medical
DX: R30.0 Dysuria (principal)
CPT/HCPCS: 81001; 81003; 87086; 87088; 87186

== ENCOUNTER 2022-10-24 09:43 | Outpatient (AMB) | payer OTHER, SELFPAY ==
--- NOTE | 2022-10-24 10:31 | AM.OFFWIN_ITS ---
Intake Vital Signs 10/24/22 10:32 Height 5 ft 10 in Weight 229 lb 8 oz BMI 32.9 BP 130/76 Blood Pressure Location Lt brachial Position Sitting Pulse 64 Pulse Source Pulse Oximeter Temp 97.3 F Temp Source Temporal Artery Scan Pulse Oximetry (%) 96 Oxygen Delivery Method Room Air Intake Visit Reasons: EP, Left ring finger swelling Intake Note: Pt is here c/o left ring finger being swollen. Pt states 10 years ago she had a cyst and her finger broke. Pt states she was drying clothes yesterday when she heard her finger pop. Pt states she cannot even bend her finger. Pt requesting XRAY. Patient Tobacco Use Status: Former Tobacco user (2 times per week ) Allergies amoxicillin Allergy (Unknown, Verified 10/26/22 18:11) Unknown ceftriaxone Allergy (Unknown, Verified 10/26/22 18:11) Unknown Medication List - Last Reconciled 10/26/22 by Zay Guzmán MD buspirone 10 mg PO BID 30 days cetirizine (Zyrtec) 10 mg PO DAILY lisinopril 40 mg PO DAILY 90 days prednisone 50 mg PO DAILY 5 days venlafaxine ER 150 mg PO DAILY 90 days Do you need a note to return to daycare/school/sports/work: Yes HPI EP, Left ring finger swelling HPI Details 47-year-old female presents to the office for a sick visit. She jammed her fingers while loading clothes in the laundry. Her left hand, ring finger is swollen. [facility] Surgical History History of section History of tonsillectomy Family History Father Cirrhosis Smoker Mother Arthritis Epileptic Bladder cancer Diabetes mellitus Maternal Grandmother Breast cancer Maternal Grandfather No problems noted. Paternal Grandmother Breast cancer Paternal Grandfather No problems noted. Sister No problems noted. Sister No problems noted. Son No problems noted. Son No problems noted. Daughter No problems noted. Daughter No problems noted. Daughter No problems noted. Other Mental health disorder Substance use disorder Social History Housing: House Alcohol intake: current Alcohol intake frequency: a few times a week Patient Tobacco Use Status: Former Tobacco user (2 times per week ) Tobacco use type: Cigarette e-Cigarette/Vaping Use: Never Used Current occupational status: employed Cognitive needs: No Hearing needs: No Vision needs: No Physical Exam Vital Signs: Last Vital Signs Temp 97.3 F 10/24/22 10:32 Pulse 64 10/24/22 10:32 BP 130/76 10/24/22 10:32 Pulse Ox 96 10/24/22 10:32 Oxygen Delivery Method Room Air 10/24/22 10:32 BMI result Body Mass Index 32.9 Extrem Other: Left hand: Ring finger: Swollen, pain on flexion of the finger, pain on extension of the finger Assessment & Plan Assessment & Plan (1) Contusion of finger, left: Code(s): S60.00XA - Contusion of unspecified finger without damage to nail, initial encounter Plan X-ray images were personally reviewed by me. 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 No fractures seen. Reassurance. Orders: Orders XR hand LT min 3V 10/24/22 R05.9 - Cough, unspecified Coding Level of Care Code Est Pt Level 4 (17158) Diagnoses Contusion of finger, left S60.00XA
[2022-10-24 10:32] VITALS: BP 130/76; PULSE 64; TEMP 36.3; O2SAT 96; BMI 32.9
== END 2022-10-26 18:14 | disposition home or self-care (01) ==
PROVIDERS: PCP Internal Medicine; Visit Provider Internal Medicine
DX: S60.00XA Contusion of unspecified finger without damage to nail, initial encounter (principal)
CPT/HCPCS: 99214

== ENCOUNTER 2022-10-24 11:09 | Outpatient (REF) | payer OTHER, SELFPAY ==
--- NOTE | ~2022-10-24 | XR_ITS ---
EXAMINATION: XR HAND, LEFT CLINICAL INFORMATION: Left hand pain COMPARISON: None available. TECHNIQUE: PA, lateral, and oblique views of the left hand. FINDINGS: Arrow points to the fourth digit. Bubbly, somewhat expansile lesion is identified at the base of the fourth proximal phalanx. On AP view there is ulnar thinning of the cortex and small radial lucencies extending to the cortical surface. Alignment and articulations are maintained. 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 Impending pathologic fracture not excluded.
== END 2022-10-24 11:10 | disposition home or self-care (01) ==
LOC: HO.HMGCX 11:09
PROVIDERS: PCP Internal Medicine; Visit Provider Internal Medicine
DX: M79.642 Pain in left hand (principal)
CPT/HCPCS: 73130

== ENCOUNTER 2022-11-13 08:51 | Outpatient (AMB) | payer OTHER, SELFPAY ==
--- NOTE | 2022-11-13 09:22 | A.OFFPC_ITS ---
Vital Signs 11/13/22 10:40 Height 5 ft 10 in Weight 223 lb BMI 32.0 BP 115/67 Intake Visit Reasons: Discuss Medication Concerns~ Allergies amoxicillin Allergy (Unknown, Verified 11/13/22 09:22) Unknown ceftriaxone Allergy (Unknown, Verified 11/13/22 09:22) Unknown Medication List - Last Reconciled 11/13/22 by Deny Marmolejo MD buspirone 10 mg PO BID 30 days cetirizine (Zyrtec) 10 mg PO DAILY lisinopril 40 mg PO DAILY 90 days venlafaxine ER 150 mg PO DAILY 90 days Tobacco use date assessed: 11/13/22 Dental Screening Dental Screen Date: 11/13/22 Did you have a dental visit in the last 12 months?: No Did you have a dental problem in the last 6 months where you did not have access to dental care?: No Was dental information given to patient?: Patient has dentist HPI Discuss Medication Concerns~ 2 HPI Details Patient is a 47-year-old female she is overdue for her follow-up appointment. Labs done in over 1 year patient was notified it is very important that we monitor her lab values at least every 6 months and sometimes more frequently depending on abnormality. Patient is doing well she is taking her venlafaxine, in between she ran out when she did not come in for follow-up and she started getting depressed again. She is on venlafaxine 150 mg daily Along with buspirone 10 mg 2 times a day. Her depression and anxiety is stable. Blood pressure is stable patient is on lisinopril 40 mg, her blood pressure is 115/67, patient checked it why we will talking on a video. Allergies are stable she is taking long-acting antihistamine only as needed. I have placed order for labs to be done fasting She has started going to gym 5 days a week has lost a lot of weight feeling much better Today she weighed 223 lb and patient is 5 ft 10 in tall with BMI of 32.0 Patient has appointment in February for physical exam [facility] Surgical History History of tonsillectomy History of section Family History Father Cirrhosis Smoker Mother Arthritis Epileptic Bladder cancer Diabetes mellitus Maternal Grandmother Breast cancer Maternal Grandfather No problems noted. Paternal Grandmother Breast cancer Paternal Grandfather No problems noted. Sister No problems noted. Sister No problems noted. Son No problems noted. Son No problems noted. Daughter No problems noted. Daughter No problems noted. Daughter No problems noted. Other Mental health disorder Substance use disorder Social History Housing: House Alcohol intake: current Alcohol intake frequency: a few times a week Patient Tobacco Use Status: Former Tobacco user (2 times per week ) Tobacco use type: Cigarette e-Cigarette/Vaping Use: Never Used Current occupational status: employed Cognitive needs: No Hearing needs: No Vision needs: No Questionnaire Thrive Questionnaire Date Thrive assessed: 02/16/22 AUDIT C Alcohol Use Questionnaire (AUDIT-C) 1. How often do you have a drink containing alcohol?: Never 3. How often do you have six or more drinks on one occasion?: Never Total Score: 0 Score Reviewed/Action Taken: Yes TRISH-7 AMB Questionnaire TRISH-7 Date TRISH - 7 assessed: 02/16/22 Source: Developed by Drs. Mitchel Arriaga, Linda Cerna, Gaetano Lay and colleagues, with an educational mervat from [employer]. Review of Systems Const Denies chills and Denies fever(s) ENT Denies epistaxis and Denies nasal discharge Card Denies chest pain Resp Denies chest congestion, Denies cough and Denies hemoptysis GI Denies diarrhea and Denies nausea Skin/Breast Denies rash Neuro Reports no additional complaints Psych Reports no additional complaints Endo Reports no additional complaints Physical exam (Primary Care) Vital Signs: Last Vital Signs BP 115/67 11/13/22 10:40 BMI result Body Mass Index 32.0 Tobacco/Smoking Status: Tobacco use Status Tobacco use date assessed 11/13/22 11/13/22 09:23 Patient Tobacco Use Status Former Tobacco user (2 times 11/13/22 09:23 per week ) Tobacco use type Cigarette 11/13/22 09:23 e-Cigarette/Vaping Use Never Used 11/13/22 09:23 Thrive Assessment: Date of Thrive Assessment Date Thrive assessed 02/16/22 11/13/22 09:23 Telehealth Telehealth Location of provider rendering services: practice address Location of patient: address on file Patient Identification confirmed using: Name, : Yes Telehealth method: video Patient verbally consented to treatment: Yes Patient verbally consented to billing insurance company: Yes Patient informed of any privacy concerns related to visit: Yes Assessment and Plan Assessment & Plan (1) Major depression, recurrent: Code(s): F33.9 - Major depressive disorder, recurrent, unspecified Qualifiers: Active/Remission status: in full remission Qualified Code(s): F33.42 - Major depressive disorder, recurrent, in full remission (2) Environmental allergies: Code(s): Z91.09 - Other allergy status, other than to drugs and biological substances (3) Hypertension, essential, benign: Code(s): I10 - Essential (primary) hypertension (4) Obesity due to excess calories: Code(s): E66.09 - Other obesity due to excess calories Qualifiers: Body mass index: BMI 32.0-32.9 Obesity classification: adult class 1 (BMI 30 - 34.9) Serious obesity comorbidity presence: with serious comorbidity Qualified Code(s): E66.09 - Other obesity due to excess calories; Z68.32 - Body mass index [BMI] 32.0-32.9, adult Plan Patient is a 47-year-old female she is overdue for her follow-up appointment. Labs done in over 1 year patient was notified it is very important that we monitor her lab values at least every 6 months and sometimes more frequently depending on abnormality. Patient is doing well she is taking her venlafaxine, in between she ran out when she did not come in for follow-up and she started getting depressed again. She is on venlafaxine 150 mg daily Along with buspirone 10 mg 2 times a day. Her depression and anxiety is stable. Blood pressure is stable patient is on lisinopril 40 mg, her blood pressure is 115/67, patient checked it why we will talking on a video. Allergies are stable she is taking long-acting antihistamine only as needed. I have placed order for labs to be done fasting She has started going to gym 5 days a week has lost a lot of weight feeling much better Today she weighed 223 lb and patient is 5 ft 10 in tall with BMI of 32.0 Patient has appointment in February for physical exam Orders: Orders Complete Blood Count Auto Diff Today F33.9 - Major depressive disorder, recurrent, unspecified, I10 - Essential (primary) hypertension, Z91.09 - Other allergy status, other than to drugs and biological substances Comprehensive [place]. Panel Fast Today F33.9 - Major depressive disorder, recurrent, unspecified, I10 - Essential (primary) hypertension, Z91.09 - Other allergy status, other than to drugs and biological substances TSH reflex Free T4 Today F33.9 - Major depressive disorder, recurrent, unspecified, I10 - Essential (primary) hypertension, Z91.09 - Other allergy status, other than to drugs and biological substances Coding Level of Care Code Tele Est Pt Level 4 (17612) Diagnoses Recurrent major depressive disorder, in full remission F33.42 Active/Remission status: in full remission Environmental allergies Z91.09 Hypertension, essential, benign I10 Class 1 obesity due to excess calories with serious comorbidity and body mass index (BMI) of 32.0 to 32.9 in adult E66.09; Z68.32 Body mass index: BMI 32.0-32.9 Obesity classification: adult class 1 (BMI 30 - 34.9) Serious obesity comorbidity presence: with serious comorbidity Comment 5 prep, 15 with patient, 10 charting/ labs
[2022-11-13 10:40] VITALS: BP 115/67; BMI 32.0
== END 2022-11-13 14:43 | disposition home or self-care (01) ==
LOC: HO.HMGC 08:51
PROVIDERS: PCP Internal Medicine; Visit Provider Internal Medicine
DX: F33.42 Major depressive disorder, recurrent, in full remission (principal); E66.09 Other obesity due to excess calories; Z68.32 Body mass index [BMI] 32.0-32.9, adult; Z91.09 Other allergy status, other than to drugs and biological substances; I10 Essential (primary) hypertension
CPT/HCPCS: 99214

== ENCOUNTER 2023-05-16 08:41 | Outpatient (AMB) | payer SELFPAY ==
--- NOTE | 2023-05-16 08:40 | MHC.PC.OV ---
Vital Signs 05/16/23 08:54 Height 5 ft 10 in Weight 210 lb BMI 30.1 Intake Visit Reasons: Medication review [phone] Intake Note: [phone] Allergies amoxicillin Allergy (Unknown, Verified 05/16/23 08:40) Unknown ceftriaxone Allergy (Unknown, Verified 05/16/23 08:40) Unknown Medication List - Last Reconciled 05/16/23 by Deny Marmolejo MD buspirone 10 mg PO BID 30 days cetirizine (Zyrtec) 10 mg PO DAILY lisinopril 40 mg PO DAILY 90 days venlafaxine ER 150 mg PO DAILY Tobacco use date assessed: 05/16/23 Dental Screening Dental Screen Date: 05/16/23 Did you have a dental visit in the last 12 months?: Yes Did you have a dental problem in the last 6 months where you did not have access to dental care?: No Was dental information given to patient?: Patient has dentist HPI Medication review [phone] HPI Details Patient is a 47-year-old female this is a telemedicine video conference follow-up Patient was last seen November of last year, he missed her physical exam appointment in February Patient says that she has started a new job and is working 5 days a week so she could not come in I also do not have any labs since April of 2021, patient has promised that she will do it this weekend She has lost weight since seen in November she weighed 210 lb now Patient says that she has stop taking lisinopril she has been monitoring her blood pressure and it has been running below 140 systolic She continued to take venlafaxine 150 mg for depression and anxiety Buspirone 5 mg as needed Patient will return in August for follow-up appointment in office. [facility] Surgical History History of tonsillectomy History of section Family History Father Cirrhosis Smoker Mother Arthritis Epileptic Bladder cancer Diabetes mellitus Maternal Grandmother Breast cancer Maternal Grandfather No problems noted. Paternal Grandmother Breast cancer Paternal Grandfather No problems noted. Sister No problems noted. Sister No problems noted. Son No problems noted. Son No problems noted. Daughter No problems noted. Daughter No problems noted. Daughter No problems noted. Other Mental health disorder Substance use disorder Social History Housing: House Alcohol intake: current Alcohol intake frequency: a few times a week Patient Tobacco Use Status: Former Tobacco user (2 times per week ) Tobacco use type: Cigarette e-Cigarette/Vaping Use: Never Used Current occupational status: employed Cognitive needs: No Hearing needs: No Vision needs: No Questionnaire Thrive Questionnaire Date Thrive assessed: 02/16/22 AUDIT C Alcohol Use Questionnaire (AUDIT-C) 1. How often do you have a drink containing alcohol?: 2-4 times a month 2. How many drinks containing alcohol do you have on a typical day when you are drinking?: 1 or 2 3. How often do you have six or more drinks on one occasion?: Never Total Score: 2 TRISH-7 AMB Questionnaire TRISH-7 Date TRISH - 7 assessed: 02/16/22 Source: Developed by Drs. Mitchel Arriaga, Linda Cerna, Gaetano Lay and colleagues, with an educational mervat from [employer]. Review of Systems Const Denies chills and Denies fever(s) ENT Denies epistaxis and Denies nasal discharge Card Denies chest pain Resp Denies chest congestion, Denies cough and Denies hemoptysis GI Denies diarrhea and Denies nausea Skin/Breast Denies rash Neuro Reports no additional complaints Psych Reports no additional complaints Endo Reports no additional complaints Physical exam (Primary Care) BMI result Body Mass Index 30.1 Tobacco/Smoking Status: Tobacco use Status Tobacco use date assessed 05/16/23 05/16/23 08:41 Patient Tobacco Use Status Former Tobacco user (2 times 05/16/23 08:41 per week ) Tobacco use type Cigarette 05/16/23 08:41 e-Cigarette/Vaping Use Never Used 05/16/23 08:41 Thrive Assessment: Date of Thrive Assessment Date Thrive assessed 02/16/22 05/16/23 08:41 Telehealth Telehealth Location of provider rendering services: practice address Location of patient: address on file Patient Identification confirmed using: Name, : Yes Telehealth method: video Patient verbally consented to treatment: Yes Patient verbally consented to billing insurance company: Yes Patient informed of any privacy concerns related to visit: Yes Minutes spent on Phone/Video with Pt.: 14 Assessment and Plan Assessment & Plan (1) Major depression, recurrent: Code(s): F33.9 - Major depressive disorder, recurrent, unspecified Qualifiers: Active/Remission status: in full remission Qualified Code(s): F33.42 - Major depressive disorder, recurrent, in full remission (2) Environmental allergies: Code(s): Z91.09 - Other allergy status, other than to drugs and biological substances (3) Anxiety, generalized: Code(s): F41.1 - Generalized anxiety disorder Plan Patient is a 47-year-old female this is a telemedicine video conference follow-up Patient was last seen November of last year, he missed her physical exam appointment in February Patient says that she has started a new job and is working 5 days a week so she could not come in I also do not have any labs since April of 2021, patient has promised that she will do it this weekend She has lost weight since seen in November she weighed 210 lb now Patient says that she has stop taking lisinopril she has been monitoring her blood pressure and it has been running below 140 systolic She continued to take venlafaxine 150 mg for depression and anxiety Buspirone 5 mg as needed Patient will return in August for follow-up appointment in office. Orders: Orders Comprehensive [employer]. Panel Fast Today F33.9 - Major depressive disorder, recurrent, unspecified, F41.1 - Generalized anxiety disorder, Z91.09 - Other allergy status, other than to drugs and biological substances Complete Blood Count Auto Diff Today F33.9 - Major depressive disorder, recurrent, unspecified, F41.1 - Generalized anxiety disorder, Z91.09 - Other allergy status, other than to drugs and biological substances Lipid Panel Today F33.9 - Major depressive disorder, recurrent, unspecified, F41.1 - Generalized anxiety disorder, Z91.09 - Other allergy status, other than to drugs and biological substances TSH reflex Free T4 Today F33.9 - Major depressive disorder, recurrent, unspecified, F41.1 - Generalized anxiety disorder, Z91.09 - Other allergy status, other than to drugs and biological substances Medications: Refilled venlafaxine ER 150 mg PO DAILY 90 caps 0RF F41.8 - Other specified anxiety disorders On Hold lisinopril Hold Comment: no longer taking 40 mg PO DAILY 90 days 90 tabs 0RF Coding Level of Care Code Tele Est Pt Level 3 (42822) Diagnoses Recurrent major depressive disorder, in full remission F33.42 Active/Remission status: in full remission Environmental allergies Z91.09 Anxiety, generalized F41.1
[2023-05-16 08:54] VITALS: BMI 30.1
== END 2023-05-16 15:13 | disposition home or self-care (01) ==
LOC: HO.HMGC 08:42
PROVIDERS: PCP Internal Medicine; Visit Provider Internal Medicine
DX: F33.42 Major depressive disorder, recurrent, in full remission (principal); Z91.09 Other allergy status, other than to drugs and biological substances; F41.1 Generalized anxiety disorder
CPT/HCPCS: 99213

== ENCOUNTER 2023-07-23 08:12 | Outpatient (REF) | payer OTHER, SELFPAY ==
--- NOTE | ~2023-07-23 | XR_ITS ---
EXAMINATION: XR KNEE, LEFT CLINICAL INFORMATION: Pain in left knee. COMPARISON: None available. TECHNIQUE: Four views of the left knee. FINDINGS: Small joint effusion. Moderate narrowing of the medial compartment with medial marginal osteophytes. Small lateral marginal osteophytes. XR/XR knee LT 3V IMPRESSION: Moderate degenerative changes.
[2023-07-23 10:18] LABS: MANUAL DIFF FLAG NO
[2023-07-23 10:31] LABS: Basophils Percent Auto 0.6 % (0-2); Eosinophils Absolute Auto 0.1 X10*3/uL (0.0-0.4); Hematocrit 39.7 % (37.0-47.0); Hemoglobin 13.5 g/dl (12.0-16.0); Imm Gran Abs Auto 0.01 X10*3/uL (0.00-0.03); Imm Gran Pct Auto 0.2 % (0.0-0.4); Lymphocytes Absolute Auto 1.5 X10*3/uL (1.2-4.9); Lymphocytes Percent Auto 27.9 % (20-40); Mean Corpuscular Volume 91.3 fL (80.0-98.0); Mean Platelet Volume 11.8 fL (9.4-12.3); Monocytes Absolute Auto 0.5 X10*3/uL (0.1-1.2); Monocytes Percent Auto 8.7 % (2-11); Neutrophils Absolute Auto 3.3 x10*3/uL (2.0-8.3); Neutrophils Percent Auto 60.6 % (45-73); Platelet Count 220 X10*3/uL (160-400); Red Blood Count 4.35 X10*6/uL (4.20-5.50); Red Cell Distribution Width 13.2 % (11.0-16.0); White Blood Count 5.4 X10*3/uL (4.8-10.8)
[2023-07-23 11:20] LABS: Alanine Aminotransferase 32 U/L (0-31); Albumin Level 4.4 g/dL (3.5-5.0); Alkaline Phosphatase 47 U/L (39-117); Anion Gap 13 (12-20); Aspartate Amino Transferase 24 U/L (5-31); Bilirubin Total 0.3 mg/dL (0.0-1.0); Blood Urea Nitrogen 18 mg/dL (9-16); Calcium 9.4 mg/dL (8.4-10.2); Carbon Dioxide 26 mmol/L (22-29); Chloride 110 mmol/L (96-108); Cholesterol 231 mg/dL (<200); Estimated Glomerular Filt Rate > 60; Glucose Fasting 101 mg/dL (60-99); HDL Cholesterol 69 mg/dL (>40); LDL Cholesterol Calculated 94 mg/dL (<100); Potassium 4.7 mmol/L (3.3-5.1); Sodium 144 mmol/L (135-145); TSH reflex Free T4 3.83 uIU/mL (0.32-4.0); Total Protein 7.1 g/dL (6.5-8.0); Triglycerides 342 mg/dL (<150)
== END 2023-07-23 08:13 | disposition home or self-care (01) ==
LOC: HO.HMGCX 08:12
PROVIDERS: PCP Internal Medicine; Visit Provider Internal Medicine
DX: F41.1 Generalized anxiety disorder (principal); F33.9 Major depressive disorder, recurrent, unspecified; Z91.09 Other allergy status, other than to drugs and biological substances; M25.562 Pain in left knee
CPT/HCPCS: 36415; 73562; 80053; 80061; 84443; 85025

== ENCOUNTER 2023-07-23 08:32 | Outpatient (AMB) | payer OTHER, SELFPAY ==
[2023-07-23 08:38] VITALS: BP 140/100; PULSE 80; TEMP 36.6; O2SAT 97; BMI 34.7
--- NOTE | 2023-07-23 08:38 | AM.OFFWIN_ITS ---
Intake Vital Signs 07/23/23 08:38 07/23/23 09:18 Height 5 ft 10 in Weight 242 lb BMI 34.7 BP 140/100 H 130/90 H Blood Pressure Location Lt brachial Rt brachial Position Sitting Pulse 80 Pulse Source Pulse Oximeter Temp 97.8 F Temp Source Temporal Artery Scan Pulse Oximetry (%) 97 Oxygen Delivery Method Room Air Intake Visit Reasons: EST/left knee pain ongoing (lobby) Intake Note: pt is here today for lft knee pain ongoing started 2 month ago Patient Tobacco Use Status: Former Tobacco user (2 times per week ) Allergies amoxicillin Allergy (Unknown, Verified 07/23/23 09:02) Unknown ceftriaxone Allergy (Unknown, Verified 07/23/23 09:02) Unknown Medication List - Last Reconciled 07/23/23 by ZOHRA Nunez buspirone 10 mg PO BID 30 days cetirizine (Zyrtec) 10 mg PO DAILY lisinopril 40 mg PO DAILY 90 days naproxen 500 mg PO BID venlafaxine ER 150 mg PO DAILY Do you need a note to return to daycare/school/sports/work: No HPI HPI Comments History of Present Illness Details Patient is a 48-year-old female in today for a sick visit. She reports that for the past 1.5 months she has developed intermittent left knee pain. She states that the pain is worse in the morning, gets progressively better as the day moves on and she actively moves the joint. Does report intermittent edema after long days on her feet. Denies any trauma to the area. Has utilized knee brace over the past month with good effect. Patient does have full range of motion. Utilizes naproxen almost daily with good effect. [facility] Surgical History History of tonsillectomy History of section Family History Father Cirrhosis Smoker Mother Arthritis Epileptic Bladder cancer Diabetes mellitus Maternal Grandmother Breast cancer Maternal Grandfather No problems noted. Paternal Grandmother Breast cancer Paternal Grandfather No problems noted. Sister No problems noted. Sister No problems noted. Son No problems noted. Son No problems noted. Daughter No problems noted. Daughter No problems noted. Daughter No problems noted. Other Mental health disorder Substance use disorder Social History Housing: House Alcohol intake: current Alcohol intake frequency: a few times a week Patient Tobacco Use Status: Former Tobacco user (2 times per week ) Tobacco use type: Cigarette e-Cigarette/Vaping Use: Never Used Current occupational status: employed Cognitive needs: No Hearing needs: No Vision needs: No Review of Systems Const All systems reviewed & are unremarkable except as noted in HPI and below Denies chills and Denies fever(s) Physical Exam Vital Signs: Last Vital Signs Temp 97.8 F 07/23/23 08:38 Pulse 80 07/23/23 08:38 BP 140/100 H 07/23/23 08:38 Pulse Ox 97 07/23/23 08:38 Oxygen Delivery Method Room Air 07/23/23 08:38 BMI result Body Mass Index 34.7 Const General: cooperative and no acute distress Orientation/consciousness: patient oriented x3 Limitations: no limitations Resp Effort & Inspection: normal respiratory effort Neuro General: patient oriented x3 Motor exam (neuro): 5/5 motor strength present throughout Extrem General: Yes normal to inspection Left lower extremity: full ROM and knee Details: normal ROM and crepitus; no deformity; no edema Assessment & Plan Assessment & Plan (1) Left knee pain: Comment: Will obtain left knee x-ray. Will give referral to physical therapy. Patient has been instructed she can continue to utilize brace, ice, naproxen. Patient can also utilize Tylenol. Code(s): M25.562 - Pain in left knee Qualifiers: Chronicity: unspecified Qualified Code(s): M25.562 - Pain in left knee Plan: Take your medications as prescribed. If you were prescribed antibiotics today, it is important that you take your medication to their entirety, do not skip any doses, do not finish them early. Follow-up with your primary care provider this week. Return to the emergency department with new or worsening symptoms. Such as fevers, chills, chest pain, shortness of breath, nausea, vomiting, dizziness, he adache, vision changes, lethargy In case of emergency call 911 Plan follow up with PCP. Orders: Orders PT Evaluation and Treatment Today M25.562 - Pain in left knee XR knee LT 3V Today M25.562 - Pain in left knee Coding Level of Care Code Est Pt Level 3 (27969) Diagnoses Left knee pain, unspecified chronicity M25.562 Chronicity: unspecified Time Spent (min) 27
[2023-07-23 09:18] VITALS: BP 130/90
== END 2023-07-23 09:50 | disposition home or self-care (01) ==
PROVIDERS: PCP Internal Medicine; Visit Provider Nurse Practitioner Primary Care
DX: M25.562 Pain in left knee (principal)
CPT/HCPCS: 99213

== ENCOUNTER 2023-09-20 14:11 | Outpatient (AMB) | payer OTHER, SELFPAY ==
--- NOTE | 2023-09-20 14:16 | MHC.PC.OV ---
Vital Signs 09/20/23 14:17 Height 5 ft 10 in Weight 248 lb 8 oz BMI 35.7 BP 128/82 Blood Pressure Location Rt brachial Position Sitting Pulse 63 Pulse Source Pulse Oximeter Pulse Oximetry (%) 100 Oxygen Delivery Method Room Air Intake Visit Reasons: F/u ~ Allergies amoxicillin Allergy (Unknown, Verified 09/20/23 14:17) Unknown ceftriaxone Allergy (Unknown, Verified 09/20/23 14:17) Unknown Medication List - Last Reconciled 09/20/23 by Deny Marmolejo MD buspirone 10 mg PO BID 30 days cetirizine (Zyrtec) 10 mg PO DAILY lisinopril 40 mg PO DAILY 90 days naproxen 500 mg PO BID venlafaxine ER 150 mg PO DAILY Tobacco use date assessed: 09/20/23 Dental Screening Dental Screen Date: 09/20/23 Did you have a dental visit in the last 12 months?: No Did you have a dental problem in the last 6 months where you did not have access to dental care?: No Was dental information given to patient?: Patient has dentist HPI F/u ~ HPI Details Patient is a 48-year-old female came in for her regular follow-up appointment BMI is elevated at 35.7, patient is requesting script for Ozempic as weight loss medication She suffers from hypertension, high lipids, osteoarthritis and she is prediabetic Patient can benefit from weight loss She continued to take venlafaxine 150 mg for depression and anxiety Buspirone 5 mg as needed Labs are needed before next visit in 4 months fasting [facility] Surgical History History of tonsillectomy History of section Family History Father Cirrhosis Smoker Mother Arthritis Epileptic Bladder cancer Diabetes mellitus Maternal Grandmother Breast cancer Maternal Grandfather No problems noted. Paternal Grandmother Breast cancer Paternal Grandfather No problems noted. Sister No problems noted. Sister No problems noted. Son No problems noted. Son No problems noted. Daughter No problems noted. Daughter No problems noted. Daughter No problems noted. Other Mental health disorder Substance use disorder Social History Housing: House Alcohol intake: current Alcohol intake frequency: a few times a week Patient Tobacco Use Status: Former Tobacco user (2 times per week ) Tobacco use type: Cigarette e-Cigarette/Vaping Use: Never Used Current occupational status: employed Cognitive needs: No Hearing needs: No Vision needs: No Questionnaire PHQ-9 Over the last 2 weeks, how often have you been bothered by any of the following problems? 1. Little interest or pleasure in doing things: several days 2. Feeling down, depressed, or hopeless: several days 3. Trouble falling or staying asleep, or sleeping too much: several days 4. Feeling tired or having little energy: several days 5. Poor appetite or overeating: not at all 6. Feeling bad about yourself - or that you are a failure or have let yourself or your family down: several days 7. Trouble concentrating on things, such as reading the newspaper or watching television: several days 8. Moving or speaking so slowly that other people could have noticed. Or the opposite - being so fidgety or restless that you have been moving around a lot more than usual: not at all 9. Thoughts that you would be better off or of hurting yourself in some way: not at all Total score: 6 Depression Screening Interpretation: Negative Depression Screening Done: Yes 91516 - PHQ-9 Billing: Yes Source: Developed by Drs. Mitchel Arriaga, Linda Cerna, Gaetano Lay and colleagues, with an educational mervat from [employer]. Thrive Questionnaire Date Thrive assessed: 09/20/23 I am a: Patient What is your living situation today?: I have a steady place to live Within the past 12 months, did the food you bought not last and you didn't have the money to get more?: Never true Within the past 12 months, did you worry whether your food would run out before you got money to buy more?: Never true Do you have trouble paying for medicines?: No Do you have trouble getting transportation to medical appointments?: No Do you have trouble paying your heating and electricity bill?: No Do you have trouble taking care of your child, family member or friend?: No Do you have trouble with day-to-day activities such as bathing, preparing meals, shopping, managing finances, etc.?: No Are you currently unemployed and looking for a job?: No Are you interested in more education?: No Please select the resources that you would like help with: Housing/Prison Currently or been in a relationship where the following occur: No concerns reported THRIVE Score: 0 AUDIT C Alcohol Use Questionnaire (AUDIT-C) 1. How often do you have a drink containing alcohol?: 2-3 times a week 2. How many drinks containing alcohol do you have on a typical day when you are drinking?: 1 or 2 3. How often do you have six or more drinks on one occasion?: Less than monthly Total Score: 4 Score Reviewed/Action Taken: Yes TRISH-7 AMB Questionnaire TRISH-7 Date TRISH - 7 assessed: 09/20/23 Feeling nervous, anxious, or on edge: 1 = Several days Not being able to stop or control worryin = Several days Worrying too much about different things: 1 = Several days Trouble relaxin = Several days Being so restless that it is hard to sit still: 0 = Not at all Becoming easily annoyed or irritable: 1 = Several days Feeling afraid as if something awful might happen: 0 = Not at all Total TRISH-7 score (0-4 normal; 5-9 mild; 10-14 moderate; 15-21 severe): 5 Source: Developed by Drs. Mitchel Arriaga, Linda Cerna, Gaetano Lay and colleagues, with an educational mervat from [employer]. TRISH-7 Assessment Billing TRISH-7 Assessment Tool: TRISH-7 Assessment 19587 Review of Systems Const Denies chills and Denies fever(s) ENT Denies epistaxis and Denies nasal discharge Card Denies chest pain Resp Denies chest congestion, Denies cough and Denies hemoptysis GI Denies diarrhea and Denies nausea Skin/Breast Denies rash Neuro Reports no additional complaints Psych Reports no additional complaints Endo Reports no additional complaints Physical exam (Primary Care) Vital Signs: Last Vital Signs Pulse 63 09/20/23 14:17 BP 128/82 09/20/23 14:17 Pulse Ox 100 09/20/23 14:17 Oxygen Delivery Method Room Air 09/20/23 14:17 BMI result Body Mass Index 35.7 Tobacco/Smoking Status: Tobacco use Status Tobacco use date assessed 09/20/23 09/20/23 14:18 Patient Tobacco Use Status Former Tobacco user (2 times 09/20/23 14:18 per week ) Tobacco use type Cigarette 09/20/23 14:18 e-Cigarette/Vaping Use Never Used 09/20/23 14:18 PHQ-9: PHQ-9 Score PHQ-9: Total score 6 09/20/23 14:43 Depression Screening Interpretation: Negative Thrive Assessment: Date of Thrive Assessment Date Thrive assessed 09/20/23 09/20/23 14:18 Currently or been in a relationship where the following occur: No concerns reported Const General: cooperative, comfortable and no acute distress Orientation/consciousness: patient oriented x3 HENMT Head: Yes normocephalic Eyes General: appearance normal, both eyes and all related structures Neck Neck: Yes supple Resp Effort & Inspection: normal respiratory effort, no cough and no stridor Cardio Rhythm: regular rhythm Heart sounds: S1 normal heart sound present and S2 normal heart sound present Skin General skin exam: turgor normal Neuro General: patient oriented x3, tone normal and moves all extremities Extrem Other: Left knee swollen compared to right, range of motion intact with soreness Right lower extremity: no edema Left lower extremity: no edema Assessment and Plan Assessment & Plan (1) Hypertension, essential, benign: Code(s): I10 - Essential (primary) hypertension (2) Major depression, recurrent: Code(s): F33.9 - Major depressive disorder, recurrent, unspecified Qualifiers: Active/Remission status: in full remission Qualified Code(s): F33.42 - Major depressive disorder, recurrent, in full remission (3) Environmental allergies: Code(s): Z91.09 - Other allergy status, other than to drugs and biological substances (4) Anxiety, generalized: Code(s): F41.1 - Generalized anxiety disorder (5) Obesity due to excess calories: Code(s): E66.09 - Other obesity due to excess calories Qualifiers: Obesity classification: adult class 1 (BMI 30 - 34.9) Serious obesity comorbidity presence: with serious comorbidity Body mass index: BMI 32.0-32.9 Qualified Code(s): E66.09 - Other obesity due to excess calories; Z68.32 - Body mass index [BMI] 32.0-32.9, adult (6) Left knee pain: Comment: Will obtain left knee x-ray. Will give referral to physical therapy. Patient has been instructed she can continue to utilize brace, ice, naproxen. Patient can also utilize Tylenol. Code(s): M25.562 - Pain in left knee Qualifiers: Chronicity: unspecified Qualified Code(s): M25.562 - Pain in left knee (7) Osteoarthritis of knees, bilateral: Code(s): M17.0 - Bilateral primary osteoarthritis of knee Qualifiers: Osteoarthritis type: primary Qualified Code(s): M17.0 - Bilateral primary osteoarthritis of knee (8) Lipid disorder: Code(s): E78.9 - Disorder of lipoprotein metabolism, unspecified (9) Prediabetes: Code(s): R73.03 - Prediabetes Plan Patient is a 48-year-old female came in for her regular follow-up appointment BMI is elevated at 35.7, patient is requesting script for Ozempic as weight loss medication She suffers from hypertension, high lipids, osteoarthritis and she is prediabetic Patient can benefit from weight loss She continued to take venlafaxine 150 mg for depression and anxiety Buspirone 5 mg as needed Labs are needed before next visit in 4 months fasting Orders: Orders Complete Blood Count Auto Diff Today E66.09 - Other obesity due to excess calories, E78.9 - Disorder of lipoprotein metabolism, unspecified, I10 - Essential (primary) hypertension, M17.0 - Bilateral primary osteoarthritis of knee, R73.03 - Prediabetes, Z68.32 - Body mass index [BMI] 32.0-32.9, adult Comprehensive [place]. Panel Fast Today E66.09 - Other obesity due to excess calories, E78.9 - Disorder of lipoprotein metabolism, unspecified, I10 - Essential (primary) hypertension, M17.0 - Bilateral primary osteoarthritis of knee, R73.03 - Prediabetes, Z68.32 - Body mass index [BMI] 32.0-32.9, adult Lipid Panel Today E66.09 - Other obesity due to excess calories, E78.9 - Disorder of lipoprotein metabolism, unspecified, I10 - Essential (primary) hypertension, M17.0 - Bilateral primary osteoarthritis of knee, R73.03 - Prediabetes, Z68.32 - Body mass index [BMI] 32.0-32.9, adult Hemoglobin A1c Today E66.09 - Other obesity due to excess calories, E78.9 - Disorder of lipoprotein metabolism, unspecified, I10 - Essential (primary) hypertension, M17.0 - Bilateral primary osteoarthritis of knee, R73.03 - Prediabetes, Z68.32 - Body mass index [BMI] 32.0-32.9, adult Vitamin D 25-OH (D2 and D3) Today E66.09 - Other obesity due to excess calories, E78.9 - Disorder of lipoprotein metabolism, unspecified, I10 - Essential (primary) hypertension, M17.0 - Bilateral primary osteoarthritis of knee, R73.03 - Prediabetes, Z68.32 - Body mass index [BMI] 32.0-32.9, adult TSH reflex Free T4 Today E66.09 - Other obesity due to excess calories, E78.9 - Disorder of lipoprotein metabolism, unspecified, I10 - Essential (primary) hypertension, M17.0 - Bilateral primary osteoarthritis of knee, R73.03 - Prediabetes, Z68.32 - Body mass index [BMI] 32.0-32.9, adult Medications: New semaglutide (weight loss) (Nita) administer weeks 1 through 4 of therapy 0.25 mg (0.5 mL) subcut QWEEK 2 mL 0RF E66.09 - Other obesity due to excess calories, E78.9 - Disorder of lipoprotein metabolism, unspecified, I10 - Essential (primary) hypertension, M17.0 - Bilateral primary osteoarthritis of knee, R73.03 - Prediabetes, Z68.32 - Body mass index [BMI] 32.0-32.9, adult Coding Level of Care Code Est Pt Level 4 (97149) Diagnoses Hypertension, essential, benign I10 Recurrent major depressive disorder, in full remission F33.42 Active/Remission status: in full remission Environmental allergies Z91.09 Anxiety, generalized F41.1 Class 1 obesity due to excess calories with serious comorbidity and body mass index (BMI) of 32.0 to 32.9 in adult E66.09; Z68.32 Obesity classification: adult class 1 (BMI 30 - 34.9) Serious obesity comorbidity presence: with serious comorbidity Body mass index: BMI 32.0-32.9 Left knee pain, unspecified chronicity M25.562 Chronicity: unspecified Primary osteoarthritis of both knees M17.0 Osteoarthritis type: primary Lipid disorder E78.9 Prediabetes R73.03 Additional Codes TRISH-7 Assessment Billing - TRISH-7 Assessment Tool: TRISH-7 Assessment 90630 ([id number])
[2023-09-20 14:17] VITALS: BP 128/82; PULSE 63; O2SAT 100; BMI 35.7
== END 2023-09-20 14:49 | disposition home or self-care (01) ==
PROVIDERS: PCP Internal Medicine; Visit Provider Internal Medicine
DX: I10 Essential (primary) hypertension (principal); F33.42 Major depressive disorder, recurrent, in full remission; Z91.09 Other allergy status, other than to drugs and biological substances; F41.1 Generalized anxiety disorder; E66.09 Other obesity due to excess calories; R73.03 Prediabetes; Z68.32 Body mass index [BMI] 32.0-32.9, adult; M25.562 Pain in left knee; M17.0 Bilateral primary osteoarthritis of knee; E78.9 Disorder of lipoprotein metabolism, unspecified
CPT/HCPCS: 99214

== ENCOUNTER 2023-10-17 13:28 | Outpatient (AMB) | payer OTHER, SELFPAY ==
--- NOTE | 2023-10-17 13:30 | AM.OFFWIN_ITS ---
Intake Vital Signs 10/17/23 13:31 Height 5 ft 10 in Weight 245 lb BMI 35.2 BP 104/62 Blood Pressure Location Rt brachial Position Sitting Pulse 67 Pulse Source Pulse Oximeter Temp 98.4 F Temp Source Oral Pulse Oximetry (%) 98 Oxygen Delivery Method Room Air Intake Visit Reasons: EP scar (opening)/procedure 7 yrs ago Intake Note: pt c/o c section scar from 7 years ago ? opening. Bleeding from site. Also rash on perineum Patient Tobacco Use Status: Former Tobacco user (2 times per week ) Allergies amoxicillin Allergy (Unknown, Verified 10/17/23 13:31) Unknown ceftriaxone Allergy (Unknown, Verified 10/17/23 13:31) Unknown Do you need a note to return to daycare/school/sports/work: No HPI EP scar (opening)/procedure 7 yrs ago HPI Details This note is constructed using voice recognition software. While every effort has been made to ensure accuracy, plater apprentice errors may have been included. The patient is a 48 year old female who presents to the clinic today with concern for irritation to both her rectal area and her lower abdomen and her C- section scar. She notes that since her 7 years ago she has had reduced sensation to her area of the scar, and so has become challenging for her to keep the area under control. There has been moderately itchy, having some slight to it, and she is concerned that there may be some sort of infection or opening in the area. She also notes that she has a similar area to her coccyx which is irritated. She notes that she has had this in the past, and does not recall the exact treatment for it. She has placed some tissue in the area to help keep moisture down. She denies fever, chills. [facility] Surgical History History of tonsillectomy History of section Family History Father Cirrhosis Smoker Mother Arthritis Epileptic Bladder cancer Diabetes mellitus Maternal Grandmother Breast cancer Maternal Grandfather No problems noted. Paternal Grandmother Breast cancer Paternal Grandfather No problems noted. Sister No problems noted. Sister No problems noted. Son No problems noted. Son No problems noted. Daughter No problems noted. Daughter No problems noted. Daughter No problems noted. Other Mental health disorder Substance use disorder Social History Housing: House Alcohol intake: current Alcohol intake frequency: a few times a week Patient Tobacco Use Status: Former Tobacco user (2 times per week ) Tobacco use type: Cigarette e-Cigarette/Vaping Use: Never Used Current occupational status: employed Cognitive needs: No Hearing needs: No Vision needs: No Review of Systems Const All systems reviewed & are unremarkable except as noted in HPI and below Physical Exam Vital Signs: Last Vital Signs Temp 98.4 F 10/17/23 13:31 Pulse 67 10/17/23 13:31 BP 104/62 10/17/23 13:31 Pulse Ox 98 10/17/23 13:31 Oxygen Delivery Method Room Air 10/17/23 13:31 BMI result Body Mass Index 35.2 Const General: cooperative, healthy appearing, comfortable, no acute distress and alert Orientation/consciousness: patient oriented x3 Limitations: no limitations Skin Other: Large lower abdomen horizontal scar from . Fungal rash noted to the left lower portion of this in the abdominal fold with some excoriation. In the coccygeal for old she also has the similar fungal rash with some excoriation. Neuro General: patient oriented x3 Psych Appearance: grossly normal Mental Status: mental status grossly normal Speech and movement: Normal speech and movement present Affect: normal affect Assessment & Plan Assessment & Plan (1) Rash: Code(s): R21 - Rash and other nonspecific skin eruption Plan: Rashes consistent with fungal etiology, nystatin powder ordered and advised patient to keep the area clean, dab dry, and then dry. She may also want to follow up with her primary care provider for refills if this medication is effective and should she develop these things again. Discussed how this typically occurs and areas that are warm, and moist, his that moisture trapping in the area at a lower the fungal rash to develop an worsened. In absence of signs of secondary bacterial infection, antimicrobials are not indicated at this time. Plan See above for full details and plan. Medications: New nystatin 1 appl topical BID PRN 30 grams 0RF rash Coding Level of Care Code Est Pt Level 3 (73581) Diagnoses Rash R21
[2023-10-17 13:31] VITALS: BP 104/62; PULSE 67; TEMP 36.9; O2SAT 98; BMI 35.2
== END 2023-10-17 14:28 | disposition home or self-care (01) ==
PROVIDERS: PCP Internal Medicine; Visit Provider Registered Nurse
DX: R21 Rash and other nonspecific skin eruption (principal)
CPT/HCPCS: 99213

== ENCOUNTER 2023-12-03 10:28 | Outpatient (AMB) | payer OTHER, SELFPAY ==
[2023-12-03 10:33] VITALS: BP 134/82; PULSE 73; O2SAT 99; BMI 34.3
--- NOTE | 2023-12-03 10:33 | A.OFFPC_ITS ---
Vital Signs 12/03/23 10:33 Height 5 ft 10 in Weight 239 lb 6 oz BMI 34.3 BP 134/82 Blood Pressure Location Lt brachial Position Sitting Pulse 73 Pulse Source Pulse Oximeter Pulse Oximetry (%) 99 Oxygen Delivery Method Room Air Intake Visit Reasons: 3M F/U Allergies amoxicillin Allergy (Unknown, Verified 12/03/23 10:37) Unknown ceftriaxone Allergy (Unknown, Verified 12/03/23 10:37) Unknown Medication List - Last Reconciled 12/03/23 by Deny Marmolejo MD buprenorphine-naloxone 2-0.5 mg (Suboxone) film sublingual buspirone 10 mg PO BID 30 days cetirizine (Zyrtec) 10 mg PO DAILY lisinopril 40 mg PO DAILY 90 days naproxen 500 mg PO BID nystatin 1 appl topical BID PRN semaglutide (weight loss) (Wegovy) 0.25 mg (0.5 mL) subcut QWEEK venlafaxine ER 150 mg PO DAILY Tobacco use date assessed: 12/03/23 Dental Screening Dental Screen Date: 12/03/23 Did you have a dental visit in the last 12 months?: Yes Did you have a dental problem in the last 6 months where you did not have access to dental care?: No Was dental information given to patient?: Patient has dentist HPI 3M F/U HPI Details Patient is a 48-year-old female came in today to have a follow-up visit on her weight She was started on semaglutide 0.25 mg injection 4 weeks ago Patient managed to lose some weight She is tolerating medication there is no nausea vomiting abdominal pain However she is complaining of feeling little tired and more food grieving now I am increasing the dose to 0.5 mg She was supposed to do labs before this visit Reminded patient to do that fasting Patient is prediabetic She has developed tinea corporis infection under her abdominal fold and groin area She was seen in walk-in clinic and was given nystatin powder which helped a little I am prescribing nystatin cream for the patient to apply at night In the morning she is to dry her abdominal fold and groin area with the help of hair drier operator helper And use [id number] gold driscoll powder to absorb sweat during the day Also do wear cotton garments Anxiety depression is stable patient is on buspirone and venlafaxine Allergies are stable as well Her blood pressure is stable She is to return in 4 weeks for follow-up on her weight PFSH Surgical History History of tonsillectomy History of section Family History Father Cirrhosis Smoker Mother Arthritis Epileptic Bladder cancer Diabetes mellitus Maternal Grandmother Breast cancer Maternal Grandfather No problems noted. Paternal Grandmother Breast cancer Paternal Grandfather No problems noted. Sister No problems noted. Sister No problems noted. Son No problems noted. Son No problems noted. Daughter No problems noted. Daughter No problems noted. Daughter No problems noted. Other Mental health disorder Substance use disorder Social History Housing: House Alcohol intake: current Alcohol intake frequency: a few times a week Patient Tobacco Use Status: Former Tobacco user (2 times per week ) Tobacco use type: Cigarette e-Cigarette/Vaping Use: Never Used Current occupational status: employed Cognitive needs: No Hearing needs: No Vision needs: No Questionnaire Thrive Questionnaire Date Thrive assessed: 12/03/23 I am a: Patient What is your living situation today?: I have a steady place to live Within the past 12 months, did the food you bought not last and you didn't have the money to get more?: Never true Within the past 12 months, did you worry whether your food would run out before you got money to buy more?: Never true Do you have trouble paying for medicines?: No Do you have trouble getting transportation to medical appointments?: No Do you have trouble paying your heating and electricity bill?: No Do you have trouble taking care of your child, family member or friend?: No Do you have trouble with day-to-day activities such as bathing, preparing meals, shopping, managing finances, etc.?: No Are you currently unemployed and looking for a job?: No Are you interested in more education?: No Please select the resources that you would like help with: None Currently or been in a relationship where the following occur: No concerns reported THRIVE Score: 0 AUDIT C Alcohol Use Questionnaire (AUDIT-C) 1. How often do you have a drink containing alcohol?: 2-3 times a week 2. How many drinks containing alcohol do you have on a typical day when you are drinking?: 1 or 2 3. How often do you have six or more drinks on one occasion?: Less than monthly Total Score: 4 Score Reviewed/Action Taken: Yes TRISH-7 AMB Questionnaire TRISH-7 Date TRISH - 7 assessed: 09/20/23 Source: Developed by Drs. Mitchel Arriaga, Linda Cerna, Gaetano Lay and colleagues, with an educational mervat from [employer]. Review of Systems Const Denies chills and Denies fever(s) ENT Denies epistaxis and Denies nasal discharge Card Denies chest pain Resp Denies chest congestion, Denies cough and Denies hemoptysis GI Denies diarrhea and Denies nausea Neuro Reports no additional complaints Psych Reports no additional complaints Endo Reports no additional complaints Physical exam (Primary Care) Vital Signs: Last Vital Signs Pulse 73 12/03/23 10:33 BP 134/82 12/03/23 10:33 Pulse Ox 99 12/03/23 10:33 Oxygen Delivery Method Room Air 12/03/23 10:33 BMI result Body Mass Index 34.3 Tobacco/Smoking Status: Tobacco use Status Tobacco use date assessed 12/03/23 12/03/23 10:37 Patient Tobacco Use Status Former Tobacco user (2 times 12/03/23 10:37 per week ) Tobacco use type Cigarette 12/03/23 10:37 e-Cigarette/Vaping Use Never Used 12/03/23 10:37 Thrive Assessment: Date of Thrive Assessment Date Thrive assessed 12/03/23 12/03/23 10:37 Currently or been in a relationship where the following occur: No concerns reported Const General: cooperative, comfortable and no acute distress Orientation/consciousness: patient oriented x3 HENME Head: Yes normocephalic Eyes General: appearance normal, both eyes and all related structures Neck Neck: Yes supple Resp Effort & Inspection: normal respiratory effort, no cough and no stridor Cardio Rhythm: regular rhythm Heart sounds: S1 normal heart sound present and S2 normal heart sound present Skin Other: Fungal rash abdominal fold and groin area General skin exam: turgor normal Neuro General: patient oriented x3, tone normal and moves all extremities Extrem Right lower extremity: no edema Left lower extremity: no edema Coding Level of Care Code Est Pt Level 4 (65498) Complex EM visit Add On G2211 Diagnoses Class 1 obesity due to excess calories with serious comorbidity and body mass index (BMI) of 32.0 to 32.9 in adult E66.09; Z68.32 Obesity classification: adult class 1 (BMI 30 - 34.9) Serious obesity comorbidity presence: with serious comorbidity Body mass index: BMI 32.0-32.9 Lipid disorder E78.9 Prediabetes R73.03 Recurrent major depressive disorder, in full remission F33.42 Active/Remission status: in full remission Environmental allergies Z91.09 Anxiety, generalized F41.1 Tinea corporis B35.4 Assessment & Plan Assessment & Plan (1) Obesity due to excess calories: Code(s): E66.09 - Other obesity due to excess calories Category: Medical Qualifiers: Obesity classification: adult class 1 (BMI 30 - 34.9) Serious obesity comorbidity presence: with serious comorbidity Body mass index: BMI 32.0-32.9 Qualified Code(s): E66.09 - Other obesity due to excess calories; Z68.32 - Body mass index [BMI] 32.0-32.9, adult (2) Lipid disorder: Code(s): E78.9 - Disorder of lipoprotein metabolism, unspecified Category: Medical (3) Prediabetes: Code(s): R73.03 - Prediabetes Category: Medical (4) Major depression, recurrent: Code(s): F33.9 - Major depressive disorder, recurrent, unspecified Category: Medical Qualifiers: Active/Remission status: in full remission Qualified Code(s): F33.42 - Major depressive disorder, recurrent, in full remission (5) Environmental allergies: Code(s): Z91.09 - Other allergy status, other than to drugs and biological substances Category: Medical (6) Anxiety, generalized: Code(s): F41.1 - Generalized anxiety disorder Category: Medical (7) Tinea corporis: Code(s): B35.4 - Tinea corporis Category: Medical Plan Patient is a 48-year-old female came in today to have a follow-up visit on her weight She was started on semaglutide 0.25 mg injection 4 weeks ago Patient managed to lose some weight She is tolerating medication there is no nausea vomiting abdominal pain However she is complaining of feeling little tired and more food grieving now I am increasing the dose to 0.5 mg She was supposed to do labs before this visit Reminded patient to do that fasting Patient is prediabetic She has developed tinea corporis infection under her abdominal fold and groin area She was seen in walk-in clinic and was given nystatin powder which helped a little I am prescribing nystatin cream for the patient to apply at night In the morning she is to dry her abdominal fold and groin area with the help of hair drier operator helper And use [id number] gold driscoll powder to absorb sweat during the day Also do wear cotton garments Anxiety depression is stable patient is on buspirone and venlafaxine Allergies are stable as well Her blood pressure is stable She is to return in 4 weeks for follow-up on her weight Medications: New nystatin 1 appl topical DAILY 30 days 30 grams 1RF Changed From semaglutide (weight loss) (Nita) administer weeks 1 through 4 of therapy 0.25 mg (0.5 mL) subcut QWEEK 2 mL 0RF E66.09 - Other obesity due to excess calories, E78.9 - Disorder of lipoprotein metabolism, unspecified, I10 - Essential (primary) hypertension, M17.0 - Bilateral primary osteoarthritis of knee, R73.03 - Prediabetes, Z68.32 - Body mass index [BMI] 32.0-32.9, adult To semaglutide (weight loss) administer weeks 1 through 4 of therapy 0.5 mg (0.5 mL) subcut QWEEK 30 days 2.5 mL 0RF E66.09 - Other obesity due to excess calories, E78.9 - Disorder of lipoprotein metabolism, unspecified, I10 - Essential (primary) hypertension, M17.0 - Bilateral primary osteoarthritis of knee, R73.03 - Prediabetes, Z68.32 - Body mass index [BMI] 32.0-32.9, adult Discontinued nystatin Discontinued Reason: Doctor's Order 1 appl topical BID PRN 30 grams 0RF rash
== END 2023-12-03 11:30 | disposition home or self-care (01) ==
PROVIDERS: PCP Internal Medicine; Visit Provider Internal Medicine
DX: E66.09 Other obesity due to excess calories (principal); Z68.32 Body mass index [BMI] 32.0-32.9, adult; E78.9 Disorder of lipoprotein metabolism, unspecified; R73.03 Prediabetes; F33.42 Major depressive disorder, recurrent, in full remission; Z91.09 Other allergy status, other than to drugs and biological substances; F41.1 Generalized anxiety disorder; B35.4 Tinea corporis

== ENCOUNTER → 2023-12-03 10:28 | Outpatient (BNVA) | payer OTHER, SELFPAY | PROVIDERS: PCP Internal Medicine; Visit Provider Internal Medicine | DX: E66.09 Other obesity due to excess calories (principal); Z68.32 Body mass index [BMI] 32.0-32.9, adult; E78.9 Disorder of lipoprotein metabolism, unspecified; R73.03 Prediabetes; F33.42 Major depressive disorder, recurrent, in full remission; F41.1 Generalized anxiety disorder; B35.4 Tinea corporis; Z91.09 Other allergy status, other than to drugs and biological substances | CPT/HCPCS: 99212 ==

== ENCOUNTER 2023-12-10 09:06 | Outpatient (REF) | payer OTHER, SELFPAY ==
[2023-12-10 10:03] LABS: MANUAL DIFF FLAG NO
[2023-12-10 10:12] LABS: Basophils Percent Auto 0.8 % (0-2); Eosinophils Absolute Auto 0.1 X10*3/uL (0.0-0.4); Eosinophils Percent Auto 1.2 % (0-4); Hematocrit 39.2 % (37.0-47.0); Imm Gran Abs Auto 0.01 X10*3/uL (0.00-0.03); Imm Gran Pct Auto 0.2 % (0.0-0.4); Lymphocytes Absolute Auto 1.2 X10*3/uL (1.2-4.9); Lymphocytes Percent Auto 25.4 % (20-40); Mean Corpuscular HGB Conc 33.2 g/dl (31.0-35.0); Mean Corpuscular Hemoglobin 30.7 pg (27.0-33.0); Mean Corpuscular Volume 92.5 fL (80.0-98.0); Mean Platelet Volume 11.6 fL (9.4-12.3); Monocytes Absolute Auto 0.4 X10*3/uL (0.1-1.2); Monocytes Percent Auto 8.6 % (2-11); Neutrophils Absolute Auto 3.1 x10*3/uL (2.0-8.3); Neutrophils Percent Auto 63.8 % (45-73); Platelet Count 261 X10*3/uL (160-400); Red Blood Count 4.24 X10*6/uL (4.20-5.50); Red Cell Distribution Width 13.2 % (11.0-16.0); White Blood Count 4.9 X10*3/uL (4.8-10.8)
[2023-12-10 10:49] LABS: Estimated Average Glucose 94 mg/dL; Hemoglobin A1C 101.2623 umol/L; Hemoglobin A1c % 4.9 % (<6.0); Total Hemoglobin (HGBA1C) 3351.0043 umol/L
[2023-12-10 11:00] LABS: Alanine Aminotransferase 27 U/L (0-31); Albumin Level 4.5 g/dL (3.5-5.0); Alkaline Phosphatase 44 U/L (39-117); Anion Gap 10 (12-20); Aspartate Amino Transferase 22 U/L (5-31); Bilirubin Total 0.4 mg/dL (0.0-1.0); Blood Urea Nitrogen 10 mg/dL (9-16); Calcium 9.7 mg/dL (8.4-10.2); Carbon Dioxide 29 mmol/L (22-29); Chloride 109 mmol/L (96-108); Cholesterol 206 mg/dL (<200); Estimated Glomerular Filt Rate > 60; Glucose Fasting 99 mg/dL (60-99); HDL Cholesterol 68 mg/dL (>40); LDL Cholesterol Calculated 113 mg/dL (<100); Sodium 144 mmol/L (135-145); Total Protein 7.1 g/dL (6.5-8.0); Triglycerides 125 mg/dL (<150)
[2023-12-10 11:17] LABS: TSH reflex Free T4 2.64 uIU/mL (0.32-4.0)
[2023-12-14 16:09] LABS: Vitamin D 25-OH, D2 <4 ng/mL; Vitamin D 25-OH, D3 33 ng/mL; Vitamin D 25-OH, Total 33 ng/mL (30-100)
== END 2023-12-10 09:07 | disposition home or self-care (01) ==
LOC: HO.HMGCLDS 09:06
PROVIDERS: PCP Internal Medicine; Visit Provider Internal Medicine
DX: R73.03 Prediabetes (principal); E78.9 Disorder of lipoprotein metabolism, unspecified; M17.0 Bilateral primary osteoarthritis of knee; E66.09 Other obesity due to excess calories; Z68.32 Body mass index [BMI] 32.0-32.9, adult; I10 Essential (primary) hypertension; B35.4 Tinea corporis
CPT/HCPCS: 36415; 80053; 80061; 82306; 83036; 84443; 85025; 99212

== ENCOUNTER 2023-12-10 09:18 | Outpatient (AMB) | payer OTHER, SELFPAY ==
--- NOTE | 2023-12-10 09:19 | MHC.OFFWIV ---
Intake Vital Signs 12/10/23 09:21 Height 5 ft 10 in Weight 234 lb BMI 33.6 BP 126/90 H Blood Pressure Location Rt brachial Position Sitting Pulse 75 Pulse Source Pulse Oximeter Pulse Oximetry (%) 96 Oxygen Delivery Method Room Air Intake Visit Reasons: EP Infection under scar? Intake Note: Patient here for rash under csection scar and bikini line. She states she has has tried nystatin powder and cream. Patient Tobacco Use Status: Former Tobacco user (2 times per week ) Allergies amoxicillin Allergy (Unknown, Verified 12/10/23 09:22) Unknown ceftriaxone Allergy (Unknown, Verified 12/10/23 09:22) Unknown Do you need a note to return to daycare/school/sports/work: No HPI HPI Comments History of Present Illness Details Patient is a 48-year-old female complaining of months of a rash on the left side of her lower abdomen near her scar, on her left groin and between her butt cheeks. She states she has been to a couple of urgent cares and senior on primary care doctor and has been prescribed nystatin powder and then nystatin cream. She tells me she has been using these medications religiously but that her rash is itchy and painful and is not getting any better. She tells me she takes a shower dries everything with a towel and then uses a department of sociology chair on a cool setting to make sure everything is nice and dry and then she applies the cream and wears boxer shorts and lays on her bed with everything open to the air and it is still not resolving. She tells me she needs to take Sitz baths by the end of the day because the burning is so bad in between her butt cheeks. She denies any fevers. [facility] Surgical History History of tonsillectomy History of section Family History Father Cirrhosis Smoker Mother Arthritis Epileptic Bladder cancer Diabetes mellitus Maternal Grandmother Breast cancer Maternal Grandfather No problems noted. Paternal Grandmother Breast cancer Paternal Grandfather No problems noted. Sister No problems noted. Sister No problems noted. Son No problems noted. Son No problems noted. Daughter No problems noted. Daughter No problems noted. Daughter No problems noted. Other Mental health disorder Substance use disorder Social History Housing: House Alcohol intake: current Alcohol intake frequency: a few times a week Patient Tobacco Use Status: Former Tobacco user (2 times per week ) Tobacco use type: Cigarette e-Cigarette/Vaping Use: Never Used Current occupational status: employed Cognitive needs: No Hearing needs: No Vision needs: No Review of Systems Const All systems reviewed & are unremarkable except as noted in HPI and below Physical Exam Vital Signs: Last Vital Signs Pulse 75 12/10/23 09:21 BP 126/90 H 12/10/23 09:21 Pulse Ox 96 12/10/23 09:21 Oxygen Delivery Method Room Air 12/10/23 09:21 BMI result Body Mass Index 33.6 Const General: cooperative, healthy appearing, comfortable, no acute distress and well developed Orientation/consciousness: patient oriented x3 Limitations: no limitations Eyes General: appearance normal, both eyes and all related structures Resp Effort & Inspection: normal respiratory effort and able to speak in complete sentences Skin Other: right lower abdomen just below scar has 6cm x 3cm area of bright erythema with slight scaling at the border and some excoriation. Right inguinal area has a 4 cm x 2 cm area of bright erythema with slight scaling at the border Coccygeal has area of 7cm x 2cm area of bright erythema with slight scaling at the edges with slight excoriation Neuro General: patient oriented x3 Assessment & Plan Assessment & Plan (1) Tinea corporis: Code(s): B35.4 - Tinea corporis Plan: Patient has failed nystatin therapy, therefore I have switched her to clotrimazole. Recommended she use twice daily and continue to use the hair platen drier operator and wear boxer shorts and keeping the areas open to air and dry as much as possible. Recommended she can use gold driscoll to keep the areas dry in between applying clotrimazole. Plan See above Medications: New clotrimazole 1% 1 appl topical Q12H 4 weeks 90 grams 0RF Discontinued nystatin Discontinued Reason: Doctor's Order 1 appl topical DAILY 30 days 30 grams 1RF Coding Level of Care Code Est Pt Level 3 (94921) Diagnoses Tinea corporis B35.4
[2023-12-10 09:21] VITALS: BP 126/90; PULSE 75; O2SAT 96; BMI 33.6
== END 2023-12-10 09:53 | disposition home or self-care (01) ==
PROVIDERS: PCP Internal Medicine; Visit Provider Physician Assistant
DX: B35.4 Tinea corporis (principal)

== ENCOUNTER 2024-01-02 11:44 | Outpatient (AMB) | payer OTHER, SELFPAY ==
--- NOTE | 2024-01-02 11:57 | AM.OFFWIN_ITS ---
Intake Vital Signs 01/02/24 11:58 Height 5 ft 10 in Weight 230 lb BMI 33.0 BP 120/90 H Blood Pressure Location Rt brachial Position Sitting Pulse 71 Pulse Source Pulse Oximeter Pulse Oximetry (%) 98 Oxygen Delivery Method Room Air Intake Visit Reasons: EP-yeast infection Intake Note: Patient here for possible yeast infection. Patient Tobacco Use Status: Former Tobacco user (2 times per week ) Allergies amoxicillin Allergy (Unknown, Verified 01/02/24 12:02) Unknown ceftriaxone Allergy (Unknown, Verified 01/02/24 12:02) Unknown Do you need a note to return to daycare/school/sports/work: No HPI HPI Comments History of Present Illness Details Patient is a 48-year-old female complaining of continued yeast infection in her lower abdomen, labia extending into her anus since mid October. She has been treated with nystatin powder, nystatin cream and was recently given clotrimazole cream that she has been using for the last 3 weeks. She states that the clotrimazole cream has worked the best however it seems to have stopped working in her rash is now itchy and burning. Patient showed me pictures of her rash, it is a white coating with an erythematous base. [facility] Surgical History History of tonsillectomy History of section Family History Father Cirrhosis Smoker Mother Arthritis Epileptic Bladder cancer Diabetes mellitus Maternal Grandmother Breast cancer Maternal Grandfather No problems noted. Paternal Grandmother Breast cancer Paternal Grandfather No problems noted. Sister No problems noted. Sister No problems noted. Son No problems noted. Son No problems noted. Daughter No problems noted. Daughter No problems noted. Daughter No problems noted. Other Mental health disorder Substance use disorder Social History Housing: House Alcohol intake: current Alcohol intake frequency: a few times a week Patient Tobacco Use Status: Former Tobacco user (2 times per week ) Tobacco use type: Cigarette e-Cigarette/Vaping Use: Never Used Current occupational status: employed Cognitive needs: No Hearing needs: No Vision needs: No Review of Systems Const All systems reviewed & are unremarkable except as noted in HPI and below Physical Exam Vital Signs: Last Vital Signs Pulse 71 01/02/24 11:58 BP 120/90 H 01/02/24 11:58 Pulse Ox 98 01/02/24 11:58 Oxygen Delivery Method Room Air 01/02/24 11:58 BMI result Body Mass Index 33.0 Const General: cooperative, healthy appearing, comfortable, no acute distress and well developed Orientation/consciousness: patient oriented x3 Limitations: no limitations Eyes General: appearance normal, both eyes and all related structures Resp Effort & Inspection: normal respiratory effort and able to speak in complete sentences Skin Other: as above, pictures showed white flat areas on bright erythematous base Neuro General: patient oriented x3 Assessment & Plan Assessment & Plan (1) Tinea corporis: Code(s): B35.4 - Tinea corporis Plan: Sent fungal culture and bacterial culture of the labia. Sit fluconazole 150 mg once weekly for 4 weeks. I will also send a dermatology referral. Plan See above Orders: Orders Routine Culture w Gram Stain Today B35.4 - Tinea corporis Fungus Cult Other Today B35.4 - Tinea corporis Referrals Dermatology Referral B35.4 - Tinea corporis Medications: New fluconazole 150 mg PO QWEEK 4 weeks 4 tabs 0RF Coding Level of Care Code Est Pt Level 4 (81719) Diagnoses Tinea corporis B35.4
[2024-01-02 11:58] VITALS: BP 120/90; PULSE 71; O2SAT 98; BMI 33.0
== END 2024-01-02 14:35 | disposition home or self-care (01) ==
PROVIDERS: PCP Internal Medicine; Visit Provider Physician Assistant
DX: B35.4 Tinea corporis (principal); Z13.9 Encounter for screening, unspecified

== ENCOUNTER 2024-01-02 11:44 | Outpatient (REF) | payer OTHER, SELFPAY | END 2024-01-02 11:45 | disposition home or self-care (01) | LOC: HO.LAB 11:44 | PROVIDERS: PCP Internal Medicine; Visit Provider Physician Assistant | DX: B35.4 Tinea corporis (principal) | CPT/HCPCS: 81003; 87070; 87102; 87106; 87147; 87186; 87205; 99212 ==

== ENCOUNTER 2024-01-03 12:08 | Outpatient (AMB) | payer OTHER, SELFPAY ==
--- NOTE | 2024-01-03 12:10 | MHC.PC.OV ---
Vital Signs 01/03/24 12:13 Height 5 ft 10 in Weight 228 lb 6 oz BMI 32.8 BP 126/88 Blood Pressure Location Rt brachial Position Sitting Pulse 72 Pulse Source Pulse Oximeter Pulse Oximetry (%) 96 Oxygen Delivery Method Room Air Intake Visit Reasons: Weight Check Allergies amoxicillin Allergy (Unknown, Verified 01/03/24 12:15) Unknown ceftriaxone Allergy (Unknown, Verified 01/03/24 12:15) Unknown Medication List - Last Reconciled 01/03/24 by Deny Marmolejo MD buprenorphine-naloxone 2-0.5 mg (Suboxone) film sublingual buspirone 10 mg PO BID 30 days cetirizine (Zyrtec) 10 mg PO DAILY clotrimazole 1% 1 appl topical Q12H 4 weeks fluconazole 150 mg PO QWEEK 4 weeks lisinopril 40 mg PO DAILY 90 days naproxen 500 mg PO BID semaglutide (weight loss) 0.5 mg (0.5 mL) subcut QWEEK 30 days venlafaxine ER 150 mg PO DAILY Tobacco use date assessed: 01/03/24 Dental Screening Dental Screen Date: 01/03/24 Did you have a dental visit in the last 12 months?: Yes Did you have a dental problem in the last 6 months where you did not have access to dental care?: No Was dental information given to patient?: Patient has dentist HPI Weight Check HPI Details Patient is doing well currently on semaglutide 0.5 mg injection for the past 2 months I am increasing dose to 1 mg She has no side effects She was able to lose another 2 lb in last 4 weeks Patient will return in 3 months for follow-up now [facility] Surgical History History of tonsillectomy History of section Family History Father Cirrhosis Smoker Mother Arthritis Epileptic Bladder cancer Diabetes mellitus Maternal Grandmother Breast cancer Maternal Grandfather No problems noted. Paternal Grandmother Breast cancer Paternal Grandfather No problems noted. Sister No problems noted. Sister No problems noted. Son No problems noted. Son No problems noted. Daughter No problems noted. Daughter No problems noted. Daughter No problems noted. Other Mental health disorder Substance use disorder Social History Housing: House Alcohol intake: current Alcohol intake frequency: a few times a week Patient Tobacco Use Status: Former Tobacco user (2 times per week ) Tobacco use type: Cigarette e-Cigarette/Vaping Use: Never Used Current occupational status: employed Cognitive needs: No Hearing needs: No Vision needs: No Questionnaire Thrive Questionnaire Date Thrive assessed: 09/20/23 I am a: Patient What is your living situation today?: I have a steady place to live Within the past 12 months, did the food you bought not last and you didn't have the money to get more?: Never true Within the past 12 months, did you worry whether your food would run out before you got money to buy more?: Never true Do you have trouble paying for medicines?: No Do you have trouble getting transportation to medical appointments?: No Do you have trouble paying your heating and electricity bill?: No Do you have trouble taking care of your child, family member or friend?: No Do you have trouble with day-to-day activities such as bathing, preparing meals, shopping, managing finances, etc.?: No Are you currently unemployed and looking for a job?: No Are you interested in more education?: No Please select the resources that you would like help with: None Currently or been in a relationship where the following occur: No concerns reported THRIVE Score: 0 AUDIT C Alcohol Use Questionnaire (AUDIT-C) 1. How often do you have a drink containing alcohol?: 2-3 times a week 2. How many drinks containing alcohol do you have on a typical day when you are drinking?: 1 or 2 3. How often do you have six or more drinks on one occasion?: Less than monthly Total Score: 4 Score Reviewed/Action Taken: Yes TRISH-7 AMB Questionnaire TRISH-7 Date TRISH - 7 assessed: 09/20/23 Source: Developed by Drs. Mitchel Arriaga, Linda Cerna, Gaetano Lay and colleagues, with an educational mervat from [employer]. Review of Systems Const All systems reviewed & are unremarkable except as noted in HPI and below Physical exam (Primary Care) Vital Signs: Last Vital Signs Pulse 72 01/03/24 12:13 BP 126/88 01/03/24 12:13 Pulse Ox 96 01/03/24 12:13 Oxygen Delivery Method Room Air 01/03/24 12:13 BMI result Body Mass Index 32.8 Tobacco/Smoking Status: Tobacco use Status Tobacco use date assessed 01/03/24 01/03/24 12:16 Patient Tobacco Use Status Former Tobacco user (2 times 01/03/24 12:13 per week ) Tobacco use type Cigarette 01/03/24 12:13 e-Cigarette/Vaping Use Never Used 01/03/24 12:13 Thrive Assessment: Date of Thrive Assessment Date Thrive assessed 09/20/23 01/03/24 12:13 Currently or been in a relationship where the following occur: No concerns reported Const General: no acute distress Orientation/consciousness: patient oriented x3 Eyes General: appearance normal, both eyes and all related structures Resp Effort & Inspection: normal respiratory effort and able to speak in complete sentences Neuro General: patient oriented x3 Psych Mental Status: mental status grossly normal Coding Level of Care Code Est Pt Level 3 (38636) Diagnoses Class 1 obesity due to excess calories with serious comorbidity and body mass index (BMI) of 32.0 to 32.9 in adult E66.09; Z68.32 Obesity classification: adult class 1 (BMI 30 - 34.9) Serious obesity comorbidity presence: with serious comorbidity Body mass index: BMI 32.0-32.9 Assessment & Plan Assessment & Plan (1) Obesity due to excess calories: Code(s): E66.09 - Other obesity due to excess calories Category: Medical Qualifiers: Obesity classification: adult class 1 (BMI 30 - 34.9) Serious obesity comorbidity presence: with serious comorbidity Body mass index: BMI 32.0-32.9 Qualified Code(s): E66.09 - Other obesity due to excess calories; Z68.32 - Body mass index [BMI] 32.0-32.9, adult Plan Patient is doing well currently on semaglutide 0.5 mg injection for the past 2 months I am increasing dose to 1 mg She has no side effects She was able to lose another 2 lb in last 4 weeks Patient will return in 3 months for follow-up now Medications: Changed From semaglutide (weight loss) administer weeks 1 through 4 of therapy 0.5 mg (0.5 mL) subcut QWEEK 30 days 2.5 mL 0RF E66.09 - Other obesity due to excess calories, E78.9 - Disorder of lipoprotein metabolism, unspecified, I10 - Essential (primary) hypertension, M17.0 - Bilateral primary osteoarthritis of knee, R73.03 - Prediabetes, Z68.32 - Body mass index [BMI] 32.0-32.9, adult To semaglutide (weight loss) administer weeks 1 through 4 of therapy 1 mg (0.5 mL) subcut QWEEK 30 days 2.5 mL 2RF E66.09 - Other obesity due to excess calories, E78.9 - Disorder of lipoprotein metabolism, unspecified, I10 - Essential (primary) hypertension, M17.0 - Bilateral primary osteoarthritis of knee, R73.03 - Prediabetes, Z68.32 - Body mass index [BMI] 32.0-32.9, adult
[2024-01-03 12:13] VITALS: BP 126/88; PULSE 72; O2SAT 96; BMI 32.8
== END 2024-01-03 13:28 | disposition home or self-care (01) ==
LOC: HO.HMCC 12:09
PROVIDERS: PCP Internal Medicine; Visit Provider Internal Medicine
DX: E66.09 Other obesity due to excess calories (principal); Z68.32 Body mass index [BMI] 32.0-32.9, adult

== ENCOUNTER → 2024-01-03 12:08 | Outpatient (BNVA) | payer OTHER, SELFPAY | PROVIDERS: PCP Internal Medicine; Visit Provider Internal Medicine | DX: E66.09 Other obesity due to excess calories (principal); Z68.32 Body mass index [BMI] 32.0-32.9, adult | CPT/HCPCS: 99212 ==

== ENCOUNTER → 2024-02-04 13:03 | Outpatient (BNVA) | payer OTHER, SELFPAY | PROVIDERS: PCP Internal Medicine; Visit Provider Internal Medicine ==

== ENCOUNTER 2024-02-12 09:59 | Outpatient (AMB) | payer OTHER, SELFPAY ==
[2024-02-12 10:09] VITALS: BP 122/80; PULSE 69; O2SAT 94; BMI 41.3
--- NOTE | 2024-02-12 10:09 | AM.OFFWIN_ITS ---
Intake Vital Signs 02/12/24 10:09 Height 5 ft 1 in Weight 218 lb 8 oz BMI 41.3 BP 122/80 Blood Pressure Location Rt brachial Position Sitting Pulse 69 Pulse Source Pulse Oximeter Pulse Oximetry (%) 94 Oxygen Delivery Method Room Air Intake Visit Reasons: EP Tamayo in groin area (Dr. Marmolejo) Patient Tobacco Use Status: Former Tobacco user (2 times per week ) Allergies amoxicillin Allergy (Intermediate, Verified 02/12/24 10:10) Hives Sulfa (Sulfonamide Antibiotics) Allergy (Intermediate, Verified 02/12/24 10:10) Hives ceftriaxone Allergy (Unknown, Verified 02/12/24 10:10) Unknown Do you need a note to return to daycare/school/sports/work: No HPI HPI Comments History of Present Illness Details History of Present Illness The patient is a 48-year-old female presenting with the evaluation of new onset abscesses and concerns for a methicillin-resistant Staphylococcus aureus (MRSA) infection. The patient reports that after her previous rash improved with oral fluconazole treatment but did not go away completely, she developed multiple lumps in the external genital area. Initially, she experienced improvement as some lumps drained, but subsequently, a large abscess formed on her right buttock, which became painful, red, and hard. Attempts to self-drain resulted in significant pain and a rock-hard lesion, which had oozing and bloody upon hot soaking. 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 Despite past mupirocin usage, the current abscess failed to respond favorably. The patient relayed a possible history of hidradenitis suppurativa, previously manifesting as lesions in her axilla, with identifiable scarring on her body. She expressed concern about potential aggravation by weight loss medications, referencing a possible connection posited by her sister, who also uses such treatments. The patient also recounted an ongoing struggle with yeast infections, particularly following antibiotic treatments. She mentioned recent attempts to get pile driver engineer and OB-CLINICAL DATA MANAGEMENT DIRECTOR consultations but emphasized difficulty in making appointments due to high demand. Physical Exam General: Cooperative, healthy appearing, comfortable, no acute distress and well developed Orientation: Patient oriented x3 Limitations: No limitations Head: Normal to inspection Ears: Hearing grossly normal bilaterally Nose: Normal external nose present Face and sinus: Normal facial exam Eyes: Appearance normal, both eyes and all related structures Neck: Normal visual inspection and Yes full ROM Respiratory: Normal respiratory effort and able to speak in complete sentences. Clear to auscultation bilaterally Cardiovascular: Regular rate and rhythm. Normal S1 and S2 Skin: vaginal area, 2 indurated areas of erythema with warmth noted, 1cm x 1cm and larger area on left buttock 2cm x 1.5cm. Neuro: Patient oriented x3 Extremities: Normal to inspection [facility], [facility] Surgical History History of tonsillectomy History of section Family History Father Cirrhosis Smoker Mother Arthritis Epileptic Bladder cancer Diabetes mellitus Maternal Grandmother Breast cancer Maternal Grandfather No problems noted. Paternal Grandmother Breast cancer Paternal Grandfather No problems noted. Sister No problems noted. Sister No problems noted. Son No problems noted. Son No problems noted. Daughter No problems noted. Daughter No problems noted. Daughter No problems noted. Other Mental health disorder Substance use disorder Social History Housing: House Alcohol intake: current Alcohol intake frequency: a few times a week Patient Tobacco Use Status: Former Tobacco user (2 times per week ) Tobacco use type: Cigarette e-Cigarette/Vaping Use: Never Used Current occupational status: employed Cognitive needs: No Hearing needs: No Vision needs: No Review of Systems Const All systems reviewed & are unremarkable except as noted in HPI and below Physical Exam Vital Signs: Last Vital Signs Pulse 69 02/12/24 10:09 BP 122/80 02/12/24 10:09 Pulse Ox 94 02/12/24 10:09 Oxygen Delivery Method Room Air 02/12/24 10:09 BMI result Body Mass Index 41.3 Assessment & Plan Assessment & Plan (1) Tinea corporis: Code(s): B35.4 - Tinea corporis Plan: - Sent dermatological referral to further evaluate prior skin condition and rule out hidradenitis suppurativa or other dermatological issues. (2) Abscess: Code(s): L02.91 - Cutaneous abscess, unspecified Plan: - Initiate antibiotic therapy with Clindamycin (due to patients allergies), due to its effectiveness against MRSA as pt has MRSA history. - Prescribe diflucan fluconazole as a precautionary measure to be used only if a yeast infection develops during or after antibiotic use. - Patient advised to complete antibiotics and monitor for signs of improvement or complications. A return visit is implied if condition worsens or does not resolve with antibiotics. Patient was informed and verbally consented to the use of an ambient scribe for clinic note documentation during this visit. Orders: Referrals Dermatology Referral B35.4 - Tinea corporis, L02.91 - Cutaneous abscess, unspecified Medications: New clindamycin HCl 450 mg (3 x 150 mg) PO Q8H 7 days 63 caps 0RF fluconazole may repeat second dose 72 hrs after first dose if symptoms persist 150 mg PO Q3D 2 tabs 0RF Coding Level of Care Code Est Pt Level 4 (99701) Diagnoses Tinea corporis B35.4 Abscess L02.91
== END 2024-02-12 10:47 | disposition home or self-care (01) ==
PROVIDERS: PCP Internal Medicine; Visit Provider Physician Assistant
DX: B35.4 Tinea corporis (principal); L02.91 Cutaneous abscess, unspecified

== ENCOUNTER → 2024-02-12 09:59 | Outpatient (BNVA) | payer OTHER, SELFPAY | PROVIDERS: PCP Internal Medicine; Visit Provider Physician Assistant | DX: B35.4 Tinea corporis (principal); L02.91 Cutaneous abscess, unspecified | CPT/HCPCS: 99212 ==

== ENCOUNTER 2024-03-09 12:38 | Outpatient (REF) | payer OTHER, SELFPAY | END 2024-03-09 12:39 | disposition home or self-care (01) | LOC: HO.LAB 12:38 | PROVIDERS: PCP Internal Medicine | DX: N30.00 Acute cystitis without hematuria (principal) | CPT/HCPCS: 81003; 99212 ==

== ENCOUNTER 2024-03-09 12:38 | Outpatient (AMB) | payer OTHER, SELFPAY ==
--- NOTE | 2024-03-09 14:13 | MHC.OFFWIV ---
Intake Vital Signs 03/09/24 14:27 Weight 216 lb BP 130/100 H Blood Pressure Location Rt brachial Position Sitting Pulse 74 Pulse Source Pulse Oximeter Temp 97.7 F Temp Source Oral Pulse Oximetry (%) 98 Oxygen Delivery Method Room Air Intake Visit Reasons: EP kidney pain [phone] Intake Note: Patient here for lower back pain and frequent urination that started last night Patient Tobacco Use Status: Former Tobacco user Allergies amoxicillin Allergy (Intermediate, Verified 03/09/24 14:14) Hives Sulfa (Sulfonamide Antibiotics) Allergy (Intermediate, Verified 03/09/24 14:14) Hives ceftriaxone Allergy (Unknown, Verified 03/09/24 14:14) Unknown Do you need a note to return to daycare/school/sports/work: Yes HPI HPI Comments History of Present Illness Details History of Present Illness - The patient is a 48-year-old female presenting with a suspected urinary tract infection. - Symptoms, including significant low back pain and increased urinary frequency, began acutely yesterday. - No hematuria or dysuria noted; has experienced a sensation of incomplete bladder emptying. - History of urinary tract infections treated successfully with antibiotics in the past. - Experienced an allergic reaction to Ceftriaxone characterized by itching and redness. - Current symptoms partially alleviated by Motrin. - Reports a recurrent dermatological issue with itching and skin soreness exacerbated by hot showers. - Awaits a dermatology appointment for the dermatological condition. Physical Exam General: Cooperative, healthy appearing, comfortable, no acute distress and well developed Orientation: Patient oriented x3 Limitations: No limitations Head: Normal to inspection Ears: Hearing grossly normal bilaterally Nose: Normal external nose present Face and sinus: Normal facial exam Eyes: Appearance normal, both eyes and all related structures Neck: Normal visual inspection and Yes full ROM Respiratory: Normal respiratory effort and able to speak in complete sentences. : negative CVA bialterally Skin: No rashes or lesions noted Neuro: Patient oriented x3 Extremities: Normal to inspection, PFS Surgical History History of tonsillectomy History of section Family History Father Cirrhosis Smoker Mother Arthritis Epileptic Bladder cancer Diabetes mellitus Maternal Grandmother Breast cancer Maternal Grandfather No problems noted. Paternal Grandmother Breast cancer Paternal Grandfather No problems noted. Sister No problems noted. Sister No problems noted. Son No problems noted. Son No problems noted. Daughter No problems noted. Daughter No problems noted. Daughter No problems noted. Other Mental health disorder Substance use disorder Social History Housing: House Alcohol intake: current Alcohol intake frequency: a few times a week Patient Tobacco Use Status: Former Tobacco user Tobacco use type: Cigarette e-Cigarette/Vaping Use: Never Used Current occupational status: employed Cognitive needs: No Hearing needs: No Vision needs: No Review of Systems Const All systems reviewed & are unremarkable except as noted in HPI and below Physical Exam Vital Signs: Last Vital Signs Temp 97.7 F 03/09/24 14:27 Pulse 74 03/09/24 14:27 BP 130/100 H 03/09/24 14:27 Pulse Ox 98 03/09/24 14:27 Oxygen Delivery Method Room Air 03/09/24 14:27 Results AMB Urinalysis, Automated UA Leukoctes 0 Marilyn/uL Last Edit by Mauri Tavera [facility] on 03/09/24 14:31 UA Nitrite Negative Last Edit by Mauri Tavera [facility] on 03/09/24 14:31 UA Urobilinogen 0.2 mg/dL Last Edit by Mauri Tavera [facility] on 03/09/24 14:31 UA Protein 15 mg/dL Last Edit by Mauri Tavera [facility] on 03/09/24 14:31 UA pH 6.0 Last Edit by Mauri Tavera [facility] on 03/09/24 14:31 UA Blood 0 Rey/uL Last Edit by Mauri Tavera [facility] on 03/09/24 14:31 UA Specific Girard 1.030 Last Edit by Mauri Tavera [facility] on 03/09/24 14:31 UA Ketone Negative Last Edit by Mauri Tavera [facility] on 03/09/24 14:31 UA Bilirubin 1 mg/dL Last Edit by Mauri Tavera [facility] on 03/09/24 14:31 UA Glucose 0 mg/dL Last Edit by Mauri Tavera [facility] on 03/09/24 14:31 Results Reviewed Results Reviewed: Laboratory Last Values Urine pH (Auto) 6.0 03/09/24 14:29 Specific Girard (Auto) 1.030 03/09/24 14:29 Urine Protein (Auto) 15 mg/dL 03/09/24 14:29 Glucose (UA)(Auto) 0 mg/dL 03/09/24 14:29 Urine Ketones (Auto) Negative 03/09/24 14:29 Urine Blood (Auto) 0 Rey/uL 03/09/24 14:29 Urine Nitrite (Auto) Negative 03/09/24 14:29 Urine Bilirubin (Auto) 1 mg/dL 03/09/24 14:29 Urine Urobilinogen (Auto) 0.2 mg/dL 03/09/24 14:29 Leukocyte Esterase (Auto) 0 Marilyn/uL 03/09/24 14:29 Assessment & Plan Assessment & Plan (1) UTI (urinary tract infection): Code(s): N39.0 - Urinary tract infection, site not specified Qualifiers: Urinary tract infection type: acute cystitis Hematuria presence: without hematuria Qualified Code(s): N30.00 - Acute cystitis without hematuria Plan: Plan For the suspected urinary tract infection, I plan to prescribe Ciprofloxacin, given the history of hypersensitivity to Ceftriaxone, instructed patient on the potential tendon risks and encouraging avoidance of high-impact activities. A urine culture is pending to guide any further adjustments. For the dermatological complaint, which may be eczema, I have reinforced the need for a dermatology follow-up and advised against hot showers. Immediate re-evaluation is advised if symptoms worsen or no improvement is seen with the current treatment plan. Patient was informed and verbally consented to the use of an ambient scribe for clinic note documentation during this visit. Orders: Orders Urine Culture Today N39.0 - Urinary tract infection, site not specified AMB Urinalysis Automated Today Z13.9 - Encounter for screening, unspecified Medications: New ciprofloxacin HCl 250 mg PO Q12H 6 tabs 0RF Coding Level of Care Code Est Pt Level 3 (11790) Diagnoses Acute cystitis without hematuria N30.00 Urinary tract infection type: acute cystitis Hematuria presence: without hematuria
[2024-03-09 14:27] VITALS: BP 130/100; PULSE 74; TEMP 36.5; O2SAT 98
== END 2024-03-09 14:41 | disposition home or self-care (01) ==
PROVIDERS: PCP Internal Medicine; Visit Provider Physician Assistant
DX: N30.00 Acute cystitis without hematuria (principal); Z13.9 Encounter for screening, unspecified

== ENCOUNTER 2024-04-01 08:56 | Outpatient (AMB) | payer OTHER, SELFPAY ==
[2024-04-01 09:03] VITALS: BP 122/78; PULSE 78; O2SAT 98; BMI 30.6
--- NOTE | 2024-04-01 09:03 | MHC.PC.OV ---
Vital Signs 04/01/24 09:03 Height 5 ft 10 in Weight 213 lb 2 oz BMI 30.6 BP 122/78 Blood Pressure Location Rt brachial Position Sitting Pulse 78 Pulse Source Pulse Oximeter Pulse Oximetry (%) 98 Oxygen Delivery Method Room Air Intake Visit Reasons: Weight management Allergies amoxicillin Allergy (Intermediate, Verified 04/01/24 09:06) Hives Sulfa (Sulfonamide Antibiotics) Allergy (Intermediate, Verified 04/01/24 09:06) Hives ceftriaxone Allergy (Unknown, Verified 04/01/24 09:06) Unknown Medication List - Last Reconciled 04/01/24 by Deny Marmolejo MD buprenorphine-naloxone 2-0.5 mg (Suboxone) film sublingual buspirone 10 mg PO BID 30 days cetirizine (Zyrtec) 10 mg PO DAILY lisinopril 40 mg PO DAILY 90 days semaglutide (weight loss) 1.7 mg (0.75 mL) subcut QWEEK 30 days venlafaxine ER 150 mg PO DAILY Tobacco use date assessed: 04/01/24 Dental Screening Dental Screen Date: 04/01/24 Did you have a dental visit in the last 12 months?: No Did you have a dental problem in the last 6 months where you did not have access to dental care?: No Was dental information given to patient?: Patient has dentist HPI Weight management HPI Details - The patient is a 48-year-old female presenting with a three-month follow-up for medication management and weight management. - Blood pressure was previously managed with lisinopril, which the patient discontinued two months ago due to normalization of readings. After weight loss - The patient?s semaglutide dose was increased to 1.7 mg three months ago as part of her weight management plan, with noticeable weight reduction and BMI currently at 30.6. - Anxiety is being managed with buspirone and venlafaxine, and the patient reports effectiveness in symptom management with occasional breakthrough anxiety episodes. - Herpes simplex virus infection causes monthly outbreaks, exacerbated since initiating semaglutide therapy. - The patient denied any current pain, nausea, vomiting, or significant side effects from medications apart from the noted anxiety episodes. Medications - Buspirone 10 mg twice daily for generalized anxiety disorder - Zyrtec (cetirizine) for allergies - Semaglutide 1.7 mg for weight management (in third month of usage) - Venlafaxine 150 mg daily for generalized anxiety disorder Problem List - Obesity - Generalized Anxiety Disorder - Allergy (unspecified) - Herpes Simplex Virus Infection - Hypertension (previous diagnosis, currently not medicated) - Recurrent Outbreak of Herpes Simplex Virus Patient Instructions - semaglutide dose increased to 2.4 mg weekly. - Begin daily valacyclovir for herpes simplex virus outbreak prevention. 500 mg daily - Schedule fasting labs before next visit. - Monitor weight as part of the current management plan. - Contact the healthcare provider if any symptoms worsen or new symptoms develop. Review of Systems - General: Denies pain, nausea, and vomiting. - Psychological: Reports occasional anxiety episodes. - Genitourinary: Reports monthly herpes outbreaks. neurological: No headaches no dizziness ear nose throat: No sore throat no hearing difficulty no ear pain cardiovascular: No syncope, no chest pain, no palpitations gastrointestinal: No nausea vomiting or diarrhea endocrine: No polyuria polydipsia no heat intolerance skin: No new complaints Physical Exam general: No acute distress HEENT: No acute findings neck: Supple respiratory system: Able to talk in full sentences, no audible wheeze no stridor cardiovascular: S1-S2 gastrointestinal: No pain, no nausea, no vomiting extremities: No new findings, knee pain is gone, no swelling [employer]: Alert awake oriented x3 motor sensory intact skin: Normal turgor [facility] History History of tonsillectomy History of section Family History Father Cirrhosis Smoker Mother Arthritis Epileptic Bladder cancer Diabetes mellitus Maternal Grandmother Breast cancer Maternal Grandfather No problems noted. Paternal Grandmother Breast cancer Paternal Grandfather No problems noted. Sister No problems noted. Sister No problems noted. Son No problems noted. Son No problems noted. Daughter No problems noted. Daughter No problems noted. Daughter No problems noted. Other Mental health disorder Substance use disorder Social History Housing: House Alcohol intake: current Alcohol intake frequency: a few times a week Patient Tobacco Use Status: Former Tobacco user Tobacco use type: Cigarette e-Cigarette/Vaping Use: Never Used Current occupational status: employed Cognitive needs: No Hearing needs: No Vision needs: No Questionnaire PHQ-9 Over the last 2 weeks, how often have you been bothered by any of the following problems? 1. Little interest or pleasure in doing things: several days 2. Feeling down, depressed, or hopeless: several days 3. Trouble falling or staying asleep, or sleeping too much: several days 4. Feeling tired or having little energy: several days 5. Poor appetite or overeating: not at all 6. Feeling bad about yourself - or that you are a failure or have let yourself or your family down: several days 7. Trouble concentrating on things, such as reading the newspaper or watching television: several days 8. Moving or speaking so slowly that other people could have noticed. Or the opposite - being so fidgety or restless that you have been moving around a lot more than usual: not at all 9. Thoughts that you would be better off or of hurting yourself in some way: not at all Total score: 6 Depression Screening Interpretation: Negative Depression Screening Done: Yes 01786 - PHQ-9 Billing: Yes Source: Developed by Drs. Mitchel Arriaga, Linda Cerna, Gaetano Lay and colleagues, with an educational mervat from [employer]. Thrive Questionnaire Date Thrive assessed: 04/01/24 I am a: Patient What is your living situation today?: I have a steady place to live Within the past 12 months, did the food you bought not last and you didn't have the money to get more?: Never true Within the past 12 months, did you worry whether your food would run out before you got money to buy more?: Never true Do you have trouble paying for medicines?: No Do you have trouble getting transportation to medical appointments?: No Do you have trouble paying your heating and electricity bill?: No Do you have trouble taking care of your child, family member or friend?: No Do you have trouble with day-to-day activities such as bathing, preparing meals, shopping, managing finances, etc.?: No Are you currently unemployed and looking for a job?: Yes Are you interested in more education?: Yes Please select the resources that you would like help with: Childcare and Job search/training Currently or been in a relationship where the following occur: No concerns reported THRIVE Score: 0 AUDIT C Alcohol Use Questionnaire (AUDIT-C) 1. How often do you have a drink containing alcohol?: 2-3 times a week 2. How many drinks containing alcohol do you have on a typical day when you are drinking?: 1 or 2 3. How often do you have six or more drinks on one occasion?: Less than monthly Total Score: 4 Score Reviewed/Action Taken: Yes TRISH-7 AMB Questionnaire TRISH-7 Date TRISH - 7 assessed: 04/01/24 Feeling nervous, anxious, or on edge: 2 = More than half the days Not being able to stop or control worryin = Several days Worrying too much about different things: 2 = More than half the days Trouble relaxin = Several days Being so restless that it is hard to sit still: 1 = Several days Becoming easily annoyed or irritable: 1 = Several days Feeling afraid as if something awful might happen: 0 = Not at all Total TRISH-7 score (0-4 normal; 5-9 mild; 10-14 moderate; 15-21 severe): 8 Source: Developed by Drs. Mitchel Arriaga, Linda Cerna, Gaetano Lay and colleagues, with an educational mervat from [employer]. TRISH-7 Assessment Billing TRISH-7 Assessment Tool: TRISH-7 Assessment 17171 Physical exam (Primary Care) Vital Signs: Last Vital Signs Pulse 78 04/01/24 09:03 BP 122/78 04/01/24 09:03 Pulse Ox 98 04/01/24 09:03 Oxygen Delivery Method Room Air 04/01/24 09:03 BMI result Body Mass Index 30.6 Tobacco/Smoking Status: Tobacco use Status Tobacco use date assessed 04/01/24 04/01/24 09:06 Patient Tobacco Use Status Former Tobacco user 04/01/24 09:06 Tobacco use type Cigarette 04/01/24 09:06 e-Cigarette/Vaping Use Never Used 04/01/24 09:06 PHQ-9: PHQ-9 Score PHQ-9: Total score 6 04/01/24 09:16 Depression Screening Interpretation: Negative Thrive Assessment: Date of Thrive Assessment Date Thrive assessed 04/01/24 04/01/24 09:06 Currently or been in a relationship where the following occur: No concerns reported Coding Level of Care Code Est Pt Level 4 (21232) Complex EM visit Add On G2211 Diagnoses Class 1 obesity due to excess calories with serious comorbidity and body mass index (BMI) of 32.0 to 32.9 in adult E66.09; Z68.32 Body mass index: BMI 32.0-32.9 Obesity classification: adult class 1 (BMI 30 - 34.9) Serious obesity comorbidity presence: with serious comorbidity Additional Codes TRISH-7 Assessment Billing - TRISH-7 Assessment Tool: TRISH-7 Assessment 52130 ([id number]) PHQ-9 - 42080 - PHQ-9 Billing: Yes ([id number]) Assessment & Plan Assessment & Plan (1) Obesity due to excess calories: Code(s): E66.09 - Other obesity due to excess calories Category: Medical Qualifiers: Body mass index: BMI 32.0-32.9 Obesity classification: adult class 1 (BMI 30 - 34.9) Serious obesity comorbidity presence: with serious comorbidity Qualified Code(s): E66.09 - Other obesity due to excess calories; Z68.32 - Body mass index [BMI] 32.0-32.9, adult Plan - The patient is a 48-year-old female presenting with a three-month follow-up for medication management and weight management. - Blood pressure was previously managed with lisinopril, which the patient discontinued two months ago due to normalization of readings. After weight loss - The patient?s semaglutide dose was increased to 1.7 mg three months ago as part of her weight management plan, with noticeable weight reduction and BMI currently at 30.6. - Anxiety is being managed with buspirone and venlafaxine, and the patient reports effectiveness in symptom management with occasional breakthrough anxiety episodes. - Herpes simplex virus infection causes monthly outbreaks, exacerbated since initiating semaglutide therapy. - The patient denied any current pain, nausea, vomiting, or significant side effects from medications apart from the noted anxiety episodes. Medications - Buspirone 10 mg twice daily for generalized anxiety disorder - Zyrtec (cetirizine) for allergies - Semaglutide 1.7 mg for weight management (in third month of usage) - Venlafaxine 150 mg daily for generalized anxiety disorder Problem List - Obesity - Generalized Anxiety Disorder - Allergy (unspecified) - Herpes Simplex Virus Infection - Hypertension (previous diagnosis, currently not medicated) - Recurrent Outbreak of Herpes Simplex Virus Patient Instructions - semaglutide dose increased to 2.4 mg weekly. - Begin daily valacyclovir for herpes simplex virus outbreak prevention. 500 mg daily - Schedule fasting labs before next visit. - Monitor weight as part of the current management plan. - Contact the healthcare provider if any symptoms worsen or new symptoms develop. Medications: New valacyclovir 500 mg PO DAILY 90 tabs 0RF Changed From semaglutide (weight loss) administer weeks 1 through 4 of therapy 1.7 mg (0.75 mL) subcut QWEEK 30 days 3.75 mL 2RF E66.09 - Other obesity due to excess calories, E78.9 - Disorder of lipoprotein metabolism, unspecified, I10 - Essential (primary) hypertension, M17.0 - Bilateral primary osteoarthritis of knee, R73.03 - Prediabetes, Z68.32 - Body mass index [BMI] 32.0-32.9, adult To semaglutide (weight loss) administer weeks 1 through 4 of therapy 2.4 mg (0.75 mL) subcut QWEEK 30 days 3.75 mL 2RF E66.09 - Other obesity due to excess calories, E78.9 - Disorder of lipoprotein metabolism, unspecified, I10 - Essential (primary) hypertension, M17.0 - Bilateral primary osteoarthritis of knee, R73.03 - Prediabetes, Z68.32 - Body mass index [BMI] 32.0-32.9, adult Discontinued lisinopril Discontinued Reason: Doctor's Order 40 mg PO DAILY 90 days 90 tabs 0RF
== END 2024-04-01 09:35 | disposition home or self-care (01) ==
PROVIDERS: PCP Internal Medicine; Visit Provider Internal Medicine
DX: E66.09 Other obesity due to excess calories (principal); Z68.32 Body mass index [BMI] 32.0-32.9, adult

== ENCOUNTER → 2024-04-01 08:56 | Outpatient (BNVA) | payer OTHER, SELFPAY | PROVIDERS: PCP Internal Medicine; Visit Provider Internal Medicine | DX: E66.09 Other obesity due to excess calories (principal); I10 Essential (primary) hypertension; E78.9 Disorder of lipoprotein metabolism, unspecified; R73.03 Prediabetes; M17.0 Bilateral primary osteoarthritis of knee; Z68.32 Body mass index [BMI] 32.0-32.9, adult | CPT/HCPCS: 96127; 99212 ==

== ENCOUNTER 2024-06-08 12:50 | Outpatient (AMB) | payer OTHER, SELFPAY ==
--- NOTE | 2024-06-08 12:56 | AM.OFFWIN_ITS ---
Intake Vital Signs 06/08/24 12:57 Weight 212 lb BP 120/88 Blood Pressure Location Rt brachial Position Sitting Pulse 78 Pulse Source Pulse Oximeter Temp 98.1 F Temp Source Oral Pulse Oximetry (%) 98 Oxygen Delivery Method Room Air Intake Visit Reasons: EP-headaches, ?sinus infection Intake Note: Patient here for sinus pressure, headaches and congestion that has been present for about 1 week. Patient Tobacco Use Status: Former Tobacco user Allergies amoxicillin Allergy (Intermediate, Verified 04/01/24 09:06) Hives Sulfa (Sulfonamide Antibiotics) Allergy (Intermediate, Verified 04/01/24 09:06) Hives ceftriaxone Allergy (Unknown, Verified 04/01/24 09:06) Unknown Do you need a note to return to daycare/school/sports/work: No HPI HPI Comments History of Present Illness Details History - The patient is a 49-year-old female pr esenting with persistent head cold and sinus congestion. - Her symptoms began approximately a wee k ago, with noticeable deterioration over this period. - She experiences persistent headaches t reated with Tylenol and Motrin and has taken Sudafed for sinus relief. - She reports increased symptoms each mo rning, including disturbed equilibrium and popping ears. - Despite using Flonase, symptoms persis t with morning voice changes and occasional dizziness. - She denies any significant viral sympt oms and recently experienced sweating without a clear trigger. Physical Exam General: Cooperative, healthy appearing, comfortable and no acute distress Orientation/consciousness: Patient oriented x3 Limitations: No limitations Head: Normal to inspection Ears: Hearing grossly normal bilaterally, external ears normal and TM's normal bilaterally Nose: Normal external nose present, Normal nares present and No nasal discharge present Face and sinus: Normal facial exam and Yes sinuses tender Mouth: Normal oral and palatal mucosa present and moist mucous membranes Throat: Yes tonsils normal, Yes uvula midline. Posterior oropharynx erythema Eyes: Appearance normal, both eyes and all related structures Neck: Normal visual inspection Respiratory: Normal respiratory effort, able to speak in complete sentences, no respiratory distress, not tachypneic, no tripod positioning and no use of accessory muscles Skin: No rashes or lesions noted Neuro: Patient oriented x3 Extremities: Normal to inspection and Yes no clubbing, cyanosis or edema [facility] Medical History (Updated 06/08/24 @ 13:22 by Latrice Cordero NP) Acute respiratory disease Surgical History History of tonsillectomy History of section Family History Father Cirrhosis Smoker Mother Arthritis Epileptic Bladder cancer Diabetes mellitus Maternal Grandmother Breast cancer Maternal Grandfather No problems noted. Paternal Grandmother Breast cancer Paternal Grandfather No problems noted. Sister No problems noted. Sister No problems noted. Son No problems noted. Son No problems noted. Daughter No problems noted. Daughter No problems noted. Daughter No problems noted. Other Mental health disorder Substance use disorder Social History Housing: House Alcohol intake: current Alcohol intake frequency: a few times a week Patient Tobacco Use Status: Former Tobacco user Tobacco use type: Cigarette e-Cigarette/Vaping Use: Never Used Current occupational status: employed Cognitive needs: No Hearing needs: No Vision needs: No Review of Systems Const All systems reviewed & are unremarkable except as noted in HPI and below Physical Exam Vital Signs: Last Vital Signs Temp 98.1 F 06/08/24 12:57 Pulse 78 06/08/24 12:57 BP 120/88 06/08/24 12:57 Pulse Ox 98 06/08/24 12:57 Oxygen Delivery Method Room Air 06/08/24 12:57 Assessment & Plan Assessment & Plan (1) Acute respiratory disease: Code(s): J06.9 - Acute upper respiratory infection, unspecified Plan: VSS, pt well appearing and PE remarkable for sinus tenderness. The patient will undergo an oral steroid regimen of 20 mg per day for five days to directly address sinus inflammation and aid symptom relief. Concurrent use of Flonase nasal spray is advised to maintain sinus drainage, with guidance on application to minimize over-drying. If nasal passages become excessively dry, saline spray should be used to maintain moisture. No immediate need for viral testing is indicated due to absent symptoms of cough or fever. Monitoring of symptoms over the next 10 to 14 days is crucial, as most cases are viral. Antibiotic therapy may be considered if symptoms persist or worsen. Continued adherence to and assessment of current treatment effectiveness is recommended. Patient was informed and verbally consented to the use of an ambient scribe for clinic note documentation during this visit Medications: New prednisone 20 mg PO DAILY 5 tabs 0RF Coding Level of Care Code Est Pt Level 3 (24850) Diagnoses Acute respiratory disease J06.9
[2024-06-08 12:57] VITALS: BP 120/88; PULSE 78; TEMP 36.7; O2SAT 98
== END 2024-06-08 13:51 | disposition home or self-care (01) ==
PROVIDERS: PCP Internal Medicine; Visit Provider Physician Assistant
DX: J06.9 Acute upper respiratory infection, unspecified (principal)

== ENCOUNTER → 2024-06-08 12:50 | Outpatient (BNVA) | payer OTHER, SELFPAY | PROVIDERS: PCP Internal Medicine; Visit Provider Physician Assistant | DX: J06.9 Acute upper respiratory infection, unspecified (principal) | CPT/HCPCS: 99212 ==

== ENCOUNTER → 2024-07-23 11:58 | Outpatient (BNVA) | payer OTHER, SELFPAY | PROVIDERS: PCP Internal Medicine; Visit Provider Internal Medicine ==

== ENCOUNTER 2024-08-14 12:00 | Outpatient (AMB) | payer OTHER, SELFPAY ==
--- NOTE | 2024-08-14 12:04 | A.OFFPC_ITS ---
Vital Signs 08/14/24 12:05 Height 5 ft 10 in Weight 204 lb 4 oz BMI 29.3 BP 118/78 Blood Pressure Location Rt femoral Position Sitting Respiration 18 Pulse 67 Pulse Source Pulse Oximeter Temp 97.8 F Temp Source Oral Pulse Oximetry (%) 98 Oxygen Delivery Method Room Air Intake Visit Reasons: weight loss medication/management Allergies amoxicillin Allergy (Intermediate, Verified 08/14/24 12:04) Hives Sulfa (Sulfonamide Antibiotics) Allergy (Intermediate, Verified 08/14/24 12:04) Hives ceftriaxone Allergy (Unknown, Verified 08/14/24 12:04) Unknown Medication List - Last Reconciled 08/14/24 by Deny Marmolejo MD buprenorphine-naloxone 2-0.5 mg (Suboxone) film sublingual buspirone 10 mg PO BID 30 days cetirizine (Zyrtec) 10 mg PO DAILY tirzepatide (weight loss) 10 mg (0.5 mL) subcut QWEEK 30 days valacyclovir 500 mg PO DAILY venlafaxine ER 150 mg PO DAILY Tobacco use date assessed: 08/14/24 Dental Screening Dental Screen Date: 08/14/24 Did you have a dental visit in the last 12 months?: No Did you have a dental problem in the last 6 months where you did not have access to dental care?: No Was dental information given to patient?: Patient has dentist HPI weight loss medication/management HPI Details History - The patient is a 49-year-old female pr esenting with menopausal symptoms affecting sexuality. The patient reports a decreased libido and affection towards her spouse, which she describes as the absence of oomph. No menstrual cycles for several years, indicative of menopause. - The patient reports lower back pain si nce the of her 16-year-old child, allegedly linked to an epidural complication. The patient has a history of being prescribed Suboxone for long-term pain management. - The patient mentions ongoing weight lo ss, with the help of Zepbound, fluctuating between 204.4 lbs and approximately 201 lbs, contributing to her commitment to exercise and dieting. - Past medical history includes anxiety and depression for which Buspirone and Venlafaxine are prescribed. - Mention of family bereavement; mother? s unexpected . - Missed appointments, with a [facility], but no formal physical exam since March. The patient acknowledges the need for a thyroid, pancreas, and blood test as mentioned in the past labs done. Medical History: - Hypothyroidism - Menopausal symptoms - Lower back pain - Chronic pain managed with Suboxone - Anxiety and Depression Surgical History: - Epidural administration during childbi rth 16 years ago Medications: - Suboxone for chronic pain management - Buspirone for anxiety - Venlafaxine for depression Social History: - Employed in the [employer] field, curr [employer] using standup desks provided by the employer - Engages in regular exercise and dietar y management for weight loss - Lives with and maintains famil y commitments - Recent emotional stress due to the los s of mother Family History: - Mother recently due to unspec ified causes Problem List - Menopausal symptoms with decreased juan eduin - Chronic lower back pain - History of Hypothyroidism - History of Depression - Anxiety disorder Patient Instructions - Schedule and attend an OBGYN appointme nt to discuss menopausal symptoms - Complete scheduled blood tests before the next visit - Follow through with the x-ray for lowe r back pain - Schedule a physical exam - Continue exercising and dietary manage ment for weight loss - Seek emotional support and self-care a ctivities due to mother's loss Review of Systems - Neurological: No headaches no dizziness - Ear nose throat: No sore throat no hearing difficulty no ear pain - Cardiovascular: No syncope, no chest pain, no palpitations - Gastrointestinal: No nausea vomiting or diarrhea - Endocrine: No polyuria polydipsia no heat intolerance - Genitourinary: No dysuria , no blood in urine Physical Exam - General: No acute distress - HEENT: No acute findings - Neck: Supple - Respiratory system: Able to talk in f ull sentences, no audible wheeze - Cardiovascular: S1-S2 regular in rate and rhythm - Gastrointestinal: No pain - back exam benign at this time - Extremities: No new findings - 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 Paternal Grandmother Breast cancer Paternal Grandfather No problems noted. Sister No problems noted. Sister No problems noted. Son No problems noted. Son No problems noted. Daughter No problems noted. Daughter No problems noted. Daughter No problems noted. Other Mental health disorder Substance use disorder Social History Housing: House Alcohol intake: current Alcohol intake frequency: a few times a week Patient Tobacco Use Status: Former Tobacco user Tobacco use type: Cigarette e-Cigarette/Vaping Use: Never Used Current occupational status: employed Cognitive needs: No Hearing needs: No Vision needs: No Questionnaire Thrive Questionnaire Date Thrive assessed: 08/14/24 I am a: Patient What is your living situation today?: I have a steady place to live Within the past 12 months, did the food you bought not last and you didn't have the money to get more?: Never true Within the past 12 months, did you worry whether your food would run out before you got money to buy more?: Never true Do you have trouble paying for medicines?: No Do you have trouble getting transportation to medical appointments?: No Do you have trouble paying your heating and electricity bill?: No Do you have trouble taking care of your child, family member or friend?: No Do you have trouble with day-to-day activities such as bathing, preparing meals, shopping, managing finances, etc.?: No Are you currently unemployed and looking for a job?: Yes Are you interested in more education?: Yes Currently or been in a relationship where the following occur: No concerns reported THRIVE Score: 0 AUDIT C Alcohol Use Questionnaire (AUDIT-C) 1. How often do you have a drink containing alcohol?: 2-3 times a week 2. How many drinks containing alcohol do you have on a typical day when you are drinking?: 1 or 2 3. How often do you have six or more drinks on one occasion?: Less than monthly Total Score: 4 Score Reviewed/Action Taken: Yes TRISH-7 AMB Questionnaire TRISH-7 Date TRISH - 7 assessed: 04/01/24 Source: Developed by Drs. Mitchel Arriaga, Linda Gaetano Boswell and colleagues, with an educational mervat from [employer]. Physical exam (Primary Care) Vital Signs: Last Vital Signs Temp 97.8 F 08/14/24 12:05 Pulse 67 08/14/24 12:05 Resp 18 08/14/24 12:05 BP 118/78 08/14/24 12:05 Pulse Ox 98 08/14/24 12:05 Oxygen Delivery Method Room Air 08/14/24 12:05 BMI result Body Mass Index 29.3 Tobacco/Smoking Status: Tobacco use Status Tobacco use date assessed 08/14/24 08/14/24 12:05 Patient Tobacco Use Status Former Tobacco user 08/14/24 12:04 Tobacco use type Cigarette 08/14/24 12:04 e-Cigarette/Vaping Use Never Used 08/14/24 12:04 Thrive Assessment: Date of Thrive Assessment Date Thrive assessed 08/14/24 08/14/24 12:05 Currently or been in a relationship where the following occur: No concerns reported Coding Level of Care Code Est Pt Level 5 (97934) Diagnoses Weight loss due to medication R63.4; T50.905A Lack of libido F52.0 Anxiety, generalized F41.1 Recurrent major depressive disorder, in partial remission F33.41 Active/Remission status: in partial remission Environmental allergies Z91.09 Lipid disorder E78.9 Prediabetes R73.03 Lumbar pain M54.50 Primary osteoarthritis of both knees M17.0 Osteoarthritis type: primary Time Spent (min) 40 Comment Reviewing chart, labs, [id number], coordination of care Assessment & Plan Assessment & Plan (1) Weight loss due to medication: Code(s): R63.4 - Abnormal weight loss; T50.905A - Adverse effect of unspecified drugs, medicaments and biological substances, initial encounter Category: Medical (2) Lack of libido: Code(s): F52.0 - Hypoactive sexual desire disorder Category: Medical (3) Anxiety, generalized: Code(s): F41.1 - Generalized anxiety disorder Category: Medical (4) Major depression, recurrent: Code(s): F33.9 - Major depressive disorder, recurrent, unspecified Category: Medical Qualifiers: Active/Remission status: in partial remission Qualified Code(s): F33.41 - Major depressive disorder, recurrent, in partial remission (5) Environmental allergies: Code(s): Z91.09 - Other allergy status, other than to drugs and biological substances Category: Medical (6) Lipid disorder: Code(s): E78.9 - Disorder of lipoprotein metabolism, unspecified Category: Medical (7) Prediabetes: Code(s): R73.03 - Prediabetes Category: Medical (8) Lumbar pain: Code(s): M54.50 - Low back pain, unspecified Category: Medical (9) Osteoarthritis of knees, bilateral: Code(s): M17.0 - Bilateral primary osteoarthritis of knee Category: Medical Qualifiers: Osteoarthritis type: primary Qualified Code(s): M17.0 - Bilateral primary osteoarthritis of knee Plan History - The patient is a 49-year-old female presenting with menopausal symptoms affecting sexuality. The patient reports a decreased libido and affection towards her spouse, which she describes as the absence of oomph. No menstrual cycles for several years, indicative of menopause. - The patient reports lower back pain since the of her 16-year-old child, allegedly linked to an epidural complication. The patient has a history of being prescribed Suboxone for long-term pain management. - The patient mentions ongoing weight loss, with the help of Zepbound, fluctuating between 204.4 lbs and approximately 201 lbs, contributing to her commitment to exercise and dieting. - Past medical history includes anxiety and depression for which Buspirone and Venlafaxine are prescribed. - Mention of family bereavement; mother?s unexpected . - Missed appointments, with a recent walk-in clinic visit in June, but no formal physical exam since March. The patient acknowledges the need for a thyroid, pancreas, and blood test as mentioned in the past labs done. Allergies are stable patient is on Zyrtec as needed Osteoarthritis knee still flares up causing difficulty walking Medical History: - Hypothyroidism - Menopausal symptoms - Lower back pain - Chronic pain managed with Suboxone - Anxiety and Depression Surgical History: - Epidural administration during childbirth 16 years ago Medications: - Suboxone for chronic pain management - Buspirone for anxiety - Venlafaxine for depression Social History: - Employed in the [employer] field, currently using standup desks provided by the employer - Engages in regular exercise and dietary management for weight loss - Lives with and maintains family commitments - Recent emotional stress due to the loss of mother Family History: - Mother recently due to unspecified causes Problem List - Menopausal symptoms with decreased libido - Chronic lower back pain - History of Hypothyroidism - History of Depression - Anxiety disorder - allergies - osteoarthritis knee bilateral - on weight loss medication Patient Instructions - Schedule and attend an OBGYN appointment to discuss menopausal symptoms - Complete scheduled blood tests before the next visit - Follow through with the x-ray for lower back pain - Schedule a physical exam - Continue exercising and dietary management for weight loss - Seek emotional support and self-care activities due to mother's loss Orders: Orders LDL Cholesterol Direct Today E78.9 - Disorder of lipoprotein metabolism, unspecified, F33.9 - Major depressive disorder, recurrent, unspecified, F41.1 - Generalized anxiety disorder, I10 - Essential (primary) hypertension, R73.03 - Prediabetes, Z91.09 - Other allergy status, other than to drugs and biological substances Amylase Today E78.9 - Disorder of lipoprotein metabolism, unspecified, F33.9 - Major depressive disorder, recurrent, unspecified, F41.1 - Generalized anxiety disorder, I10 - Essential (primary) hypertension, R73.03 - Prediabetes, Z91.09 - Other allergy status, other than to drugs and biological substances Complete Blood Count Auto Diff Today E78.9 - Disorder of lipoprotein metabolism, unspecified, F33.9 - Major depressive disorder, recurrent, unspecified, F41.1 - Generalized anxiety disorder, I10 - Essential (primary) hypertension, R73.03 - Prediabetes, Z91.09 - Other allergy status, other than to drugs and biological substances Comprehensive Met. Panel Today E78.9 - Disorder of lipoprotein metabolism, unspecified, F33.9 - Major depressive disorder, recurrent, unspecified, F41.1 - Generalized anxiety disorder, I10 - Essential (primary) hypertension, R73.03 - Prediabetes, Z91.09 - Other allergy status, other than to drugs and biological substances TSH reflex Free T4 Today E78.9 - Disorder of lipoprotein metabolism, unspecified, F33.9 - Major depressive disorder, recurrent, unspecified, F41.1 - Generalized anxiety disorder, I10 - Essential (primary) hypertension, R73.03 - Prediabetes, Z91.09 - Other allergy status, other than to drugs and biological substances Vitamin D 25-OH (D2 and D3) Today E78.9 - Disorder of lipoprotein metabolism, unspecified, F33.9 - Major depressive disorder, recurrent, unspecified, F41.1 - Generalized anxiety disorder, I10 - Essential (primary) hypertension, R73.03 - Prediabetes, Z91.09 - Other allergy status, other than to drugs and biological substances Vitamin B12 Today E78.9 - Disorder of lipoprotein metabolism, unspecified, F33.9 - Major depressive disorder, recurrent, unspecified, F41.1 - Generalized anxiety disorder, I10 - Essential (primary) hypertension, R73.03 - Prediabetes, Z91.09 - Other allergy status, other than to drugs and biological substances XR lumbar spine 2-3V Today M54.50 - Low back pain, unspecified Medications: Refilled valacyclovir 500 mg PO DAILY 90 tabs 0RF tirzepatide (weight loss) for 4 weeks 10 mg (0.5 mL) subcut QWEEK 30 days 2.5 mL 1RF venlafaxine ER 150 mg PO DAILY 90 caps 0RF F41.8 - Other specified anxiety disorders
[2024-08-14 12:05] VITALS: BP 118/78; PULSE 67; RESP 18; TEMP 36.6; O2SAT 98; BMI 29.3
== END 2024-08-14 13:03 | disposition home or self-care (01) ==
LOC: HO.HMCC 12:00
PROVIDERS: PCP Internal Medicine; Visit Provider Internal Medicine
DX: R63.4 Abnormal weight loss (principal); F41.1 Generalized anxiety disorder; T50.905A Adverse effect of unspecified drugs, medicaments and biological substances, initial encounter; F52.0 Hypoactive sexual desire disorder; F33.41 Major depressive disorder, recurrent, in partial remission; Z91.09 Other allergy status, other than to drugs and biological substances; E78.9 Disorder of lipoprotein metabolism, unspecified; R73.03 Prediabetes; M54.50 Low back pain, unspecified; M17.0 Bilateral primary osteoarthritis of knee

== ENCOUNTER → 2024-08-14 12:00 | Outpatient (BNVA) | payer OTHER, SELFPAY | PROVIDERS: PCP Internal Medicine; Visit Provider Internal Medicine | DX: F52.0 Hypoactive sexual desire disorder (principal); M54.50 Low back pain, unspecified; R63.4 Abnormal weight loss; F41.1 Generalized anxiety disorder; F33.41 Major depressive disorder, recurrent, in partial remission; E78.9 Disorder of lipoprotein metabolism, unspecified; R73.03 Prediabetes; M17.0 Bilateral primary osteoarthritis of knee; T50.905A Adverse effect of unspecified drugs, medicaments and biological substances, initial encounter; Z91.09 Other allergy status, other than to drugs and biological substances; Z79.891 Long term (current) use of opiate analgesic | CPT/HCPCS: 99212 ==

== ENCOUNTER 2024-09-17 08:46 | Outpatient (AMB) | payer OTHER, SELFPAY ==
[2024-09-17 08:47] VITALS: BP 116/84; PULSE 72; TEMP 36.7; O2SAT 99; BMI 28.7
--- NOTE | 2024-09-17 08:47 | AM.OFFWIN_ITS ---
Intake Vital Signs 3 09/17/24 08:47 Height 5 ft 10 in Weight 200 lb BMI 28.7 BP 116/84 Blood Pressure Location Lt brachial Position Sitting Pulse 72 Pulse Source Pulse Oximeter Temp 98.0 F Temp Source Oral Pulse Oximetry (%) 99 Oxygen Delivery Method Room Air Intake Visit Reasons: EP-lt under arm boil Intake Note: Patient presents with a boil under left arm times 1 week. 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 Denies fevers, chills, nausea or vomiting. She does admit to shaving her Armpit prior to abscess. [facility] Medical History (Updated 09/17/24 @ 09:21 by Latrice Cordero NP) Abscess of skin and subcutaneous tissue Acute respiratory disease Surgical History History of tonsillectomy History of section Family History Father Cirrhosis Smoker Mother Arthritis Epileptic Bladder cancer Diabetes mellitus Maternal Grandmother Breast cancer Maternal Grandfather No problems noted. Paternal Grandmother Breast cancer Paternal Grandfather No problems noted. Sister No problems noted. Sister No problems noted. Son No problems noted. Son No problems noted. Daughter No problems noted. Daughter No problems noted. Daughter No problems noted. Other Mental health disorder Substance use disorder Social History Housing: House Alcohol intake: current Alcohol intake frequency: a few times a week Patient Tobacco Use Status: Former Tobacco user Tobacco use type: Cigarette e-Cigarette/Vaping Use: Never Used Patient : No Current occupational status: employed Cognitive needs: No Hearing needs: No Vision needs: No Review of Systems Const All systems reviewed & are unremarkable except as noted in HPI and below Physical Exam Vital Signs: Last Vital Signs Temp 98.0 F 09/17/24 08:47 Pulse 72 09/17/24 08:47 BP 116/84 09/17/24 08:47 Pulse Ox 99 09/17/24 08:47 Oxygen Delivery Method Room Air 09/17/24 08:47 BMI result Body Mass Index 28.7 Const General: no acute distress Nutritional Appearance: well nourished Orientation/consciousness: patient oriented x3 Chest Chest/axillae images: 2 1. Small indurated erythematous Abscess - yellow discharge, TTP. Skin Other: Small indurated erythematous Abscess - yellow discharge, TTP. Neuro General: patient oriented x3 Assessment & Plan Assessment & Plan (1) Abscess of skin and subcutaneous tissue: Code(s): L02.91 - Cutaneous abscess, unspecified Qualifiers: Site of cutaneous abscess: other site Qualified Code(s): L02.818 - Cutaneous abscess of other sites Plan: Applied Warm compress Ordered Doxy for 10 days NSAIDs for pain relief RTC if no improvement. Medications: New 2 doxycycline hyclate 100 mg PO BID 20 caps 0RF 10 days L02.818 - Cutaneous abscess of other sites Coding Level of Care Code Est Pt Level 4 (85846) Diagnoses Cutaneous abscess of other site L02.818 Site of cutaneous abscess: other site Time Spent (min) 20
== END 2024-09-17 09:23 | disposition home or self-care (01) ==
PROVIDERS: PCP Internal Medicine; Visit Provider Nurse Practitioner Family
DX: L02.818 Cutaneous abscess of other sites (principal)

== ENCOUNTER → 2024-09-17 08:46 | Outpatient (BNVA) | payer OTHER, SELFPAY | PROVIDERS: PCP Internal Medicine; Visit Provider Nurse Practitioner Family | DX: L02.818 Cutaneous abscess of other sites (principal) | CPT/HCPCS: 99212 ==

== ENCOUNTER 2024-12-04 08:41 | Outpatient (AMB) | payer OTHER, SELFPAY ==
--- NOTE | 2024-12-04 08:38 | A.OFFPC_ITS ---
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 Accompanied by: Self / Same As Patient Allergies amoxicillin Allergy (Intermediate, Verified 12/04/24 08:43) Hives Sulfa (Sulfonamide Antibiotics) Allergy (Intermediate, Verified 12/04/24 08:43) Hives Medication List - Last Reconciled 12/04/24 by Deny Marmolejo MD buprenorphine-naloxone 2-0.5 mg (Suboxone) film sublingual cetirizine (Zyrtec) 10 mg PO DAILY valacyclovir 500 mg PO DAILY venlafaxine ER 150 mg PO DAILY Tobacco use date assessed: 08/14/24 Dental Screening Dental Screen Date: 12/04/24 Did you have a dental visit in the last 12 months?: Yes Did you have a dental problem in the last 6 months where you did not have access to dental care?: No Was dental information given to patient?: Patient has dentist HPI follow up/anxiety HPI Details History The patient is a 49-year-old female presenting with weight management concerns and gastrointestinal symptoms following medication cessation. Weight Management: - The patient was originally using the m edication zepbound for weight loss due to being overweight and prediabetic. - Initial weight was 255 pounds; weight at the last visit was 204.4 pounds with a BMI of 29.3. - The patient reported weighing 202 poun ds at the time of the conversation. - Despite achieving more than a 5% weigh t loss, insurance discontinued coverage of the medication - The patient noted recent weight gain a fter stopping the medication. Gastrointestinal Symptoms: - Diarrhea and stomach pain have returne d since stopping the weight loss medication, affecting the patient's hemorrhoids. - Symptoms have persisted intermittently over the years and occur irrespective of dietary intake. Dermatological Symptoms: - Presence of a large boil in the bikini line, resolved with drainage performed at urgent care. - The patient has experienced similar re current boils throughout life Medical History: - Anxiety disorder - Depression - Allergic Rhinitis - Weight Gain - Pre-diabetic status Medications: - Buspirone for anxiety: patient used pr eviously, asked for a refill - Venlafaxine for depression: dose not m entioned - Cetirizine as needed for allergies - Zepbound 10 mg for weight loss (medica tion not active currently) - Doxycycline (recent prescription for a resolved boil) Problem List - Anxiety - Depression - Allergic Rhinitis - Weight Management - Recurrent Skin Boils Diagnostic results - Labs from December of last year indicat e normal CBC, stable electrolytes, intact kidney function, fasting sugar of 99, stable liver enzymes, LDL of 113, vitamin D of 33, and TSH was 2.64. Patient Instructions - Continue taking buspirone and venlafax ine as currently discussed. - Implement lifestyle measures to mainta in weight loss, including regular exercise and healthy nutrition. - Schedule and complete the overdue lab tests previously ordered in August. - Consider discussing with insurance abo ut the potential continuation of weight management medications. - Follow up in 4 months for a reevaluati on of weight and health status. - Optional flu vaccination: patient agre ed to receive one at this visit. Review of Systems. General: No fever no chills neurological: No headaches no dizziness ear nose throat: No sore throat no hearing difficulty no ear pain cardiovascular: No syncope, no chest pain, no palpitations gastrointestinal: No nausea vomiting endocrine: No polyuria polydipsia no heat intolerance genitourinary: No dysuria skin: No new complaints Physical Exam general: No acute distress HEENT: No acute findings neck: Supple respiratory system: Able to talk in full sentences, no audible wheeze no stridor cardiovascular: S1-S2 RRR, blood pressure high initially but reduced to 138 after recheck gastrointestinal: Stomach pain and diarrhea reported, hemorrhoids have flared up extremities: No new findings VIDEO TECHNICIAN: Alert awake oriented x3 motor sensory intact skin: Normal turgor PFS Medical History Abscess of skin and subcutaneous tissue Acute respiratory disease Surgical History History of tonsillectomy History of section Family History Father Cirrhosis Smoker Mother Arthritis Epileptic Bladder cancer Diabetes mellitus Maternal Grandmother Breast cancer Maternal Grandfather No problems noted. Paternal Grandmother Breast cancer Paternal Grandfather No problems noted. Sister No problems noted. Sister No problems noted. Son No problems noted. Son No problems noted. Daughter No problems noted. Daughter No problems noted. Daughter No problems noted. Other Mental health disorder Substance use disorder Social History Housing: House Alcohol intake: current Alcohol intake frequency: a few times a week Patient Tobacco Use Status: Former Tobacco user Tobacco use type: Cigarette e-Cigarette/Vaping Use: Never Used Current occupational status: employed Cognitive needs: No Hearing needs: No Vision needs: No Questionnaire PHQ-9 Over the last 2 weeks, how often have you been bothered by any of the following problems? 1. Little interest or pleasure in doing things: not at all 2. Feeling down, depressed, or hopeless: not at all 3. Trouble falling or staying asleep, or sleeping too much: not at all 4. Feeling tired or having little energy: not at all 5. Poor appetite or overeating: not at all 6. Feeling bad about yourself - or that you are a failure or have let yourself or your family down: not at all 7. Trouble concentrating on things, such as reading the newspaper or watching television: several days 8. Moving or speaking so slowly that other people could have noticed. Or the opposite - being so fidgety or restless that you have been moving around a lot more than usual: not at all 9. Thoughts that you would be better off or of hurting yourself in some way: not at all Total score: 1 Depression Screening Interpretation: Negative Depression Screening Done: Yes [id number] - PHQ-9 Billing: Yes Source: Developed by Drs. Mitchel Arriaga, Linda Cerna, Gaetano Lay and colleagues, with an educational mervat from [employer]. Thrive Questionnaire Date Thrive assessed: 04/01/24 I am a: Patient What is your living situation today?: I have a steady place to live Within the past 12 months, did the food you bought not last and you didn't have the money to get more?: Never true Within the past 12 months, did you worry whether your food would run out before you got money to buy more?: Never true Do you have trouble paying for medicines?: No Do you have trouble getting transportation to medical appointments?: No Do you have trouble paying your heating and electricity bill?: No Do you have trouble taking care of your child, family member or friend?: No Do you have trouble with day-to-day activities such as bathing, preparing meals, shopping, managing finances, etc.?: No Are you currently unemployed and looking for a job?: Yes Are you interested in more education?: Yes Currently or been in a relationship where the following occur: No concerns reported THRIVE Score: 0 AUDIT C Alcohol Use Questionnaire (AUDIT-C) 1. How often do you have a drink containing alcohol?: 2-3 times a week 2. How many drinks containing alcohol do you have on a typical day when you are drinking?: 1 or 2 3. How often do you have six or more drinks on one occasion?: Less than monthly Total Score: 4 TRISH-7 AMB Questionnaire TRISH-7 Date TRISH - 7 assessed: 04/01/24 Source: Developed by Drs. Mitchel Arriaga, Linda Cerna, Gaetano Lay and colleagues, with an educational mervat from [employer]. Physical exam (Primary Care) Vital Signs: Last Vital Signs Temp 98.5 F 12/04/24 08:45 Pulse 71 12/04/24 08:45 Resp 15 12/04/24 08:45 BP 138/88 12/04/24 09:05 Pulse Ox 97 12/04/24 08:45 Oxygen Delivery Method Room Air 12/04/24 08:45 BMI result Body Mass Index 29.0 Tobacco/Smoking Status: Tobacco use Status Tobacco use date assessed 08/14/24 12/04/24 08:39 Patient Tobacco Use Status Former Tobacco user 12/04/24 08:39 Tobacco use type Cigarette 12/04/24 08:39 e-Cigarette/Vaping Use Never Used 12/04/24 08:39 PHQ-9: PHQ-9 Score PHQ-9: Total score 1 12/04/24 08:57 Depression Screening Interpretation: Negative Thrive Assessment: Date of Thrive Assessment Date Thrive assessed 04/01/24 12/04/24 08:39 Currently or been in a relationship where the following occur: No concerns reported Office Procedures Flu Questionnaire Does the patient have a severe egg allergy?: No Does the patient have severe life threatening allergies?: No Does the patient have a fever or illness today?: No Has the patient ever had Guillain-[place] Syndrome?: No Has the patient ever had any past reaction to a flu shot?: No Immunizations Fluarix [id number] (PF) 45 mcg (15 mcg x 3)/0.5 mL IM syringe Performing Provider: Deny Marmolejo MD Performing Location: [facility] Administered by: Geraldine Levy CMA on 12/04/24 09:03 Dose Route Admin Location Dispensed Lot Number Expiration Date [employer] Plan Advisor 0.5 mL IM Right Deltoid 0.5 mL [id number] 08/31/25 91441-180-29 [employer] VIS Given Date VIS Provided VIS Publication Date 12/04/24 Single Vaccine 24 Eligibility Eligibility Date Funding Source Not [facility] Eligible 12/04/24 Private Coding Level of Care Code Est Pt Level 4 (20324) Complex EM visit Add On G2211 Diagnoses Anxiety, generalized F41.1 Recurrent major depressive disorder, in partial remission F33.41 Active/Remission status: in partial remission Environmental allergies Z91.09 Lipid disorder E78.9 Prediabetes R73.03 Additional Codes PHQ-9 - 85594 - PHQ-9 Billing: Yes ([id number]) Assessment & Plan Assessment & Plan (1) Anxiety, generalized: Code(s): F41.1 - Generalized anxiety disorder Category: Medical (2) Major depression, recurrent: Code(s): F33.9 - Major depressive disorder, recurrent, unspecified Category: Medical Qualifiers: Active/Remission status: in partial remission Qualified Code(s): F33.41 - Major depressive disorder, recurrent, in partial remission (3) Environmental allergies: Code(s): Z91.09 - Other allergy status, other than to drugs and biological substances Category: Medical (4) Lipid disorder: Code(s): E78.9 - Disorder of lipoprotein metabolism, unspecified Category: Medical (5) Prediabetes: Code(s): R73.03 - Prediabetes Category: Medical Plan History The patient is a 49-year-old female presenting with weight management concerns and gastrointestinal symptoms following medication cessation. Weight Management: - The patient was originally using the medication zepbound for weight loss due to being overweight and prediabetic. - Initial weight was 255 pounds; weight at the last visit was 204.4 pounds with a BMI of 29.3. - The patient reported weighing 202 pounds at the time of the conversation. - Despite achieving more than a 5% weight loss, insurance discontinued coverage of the medication - The patient noted recent weight gain after stopping the medication. Gastrointestinal Symptoms: - Diarrhea and stomach pain have returned since stopping the weight loss medication, affecting the patient's hemorrhoids. - Symptoms have persisted intermittently over the years and occur irrespective of dietary intake. Dermatological Symptoms: - Presence of a large boil in the bikini line, resolved with drainage performed at urgent care. - The patient has experienced similar recurrent boils throughout life Medical History: - Anxiety disorder - Depression - Allergic Rhinitis - Weight Gain - Pre-diabetic status Medications: - Buspirone for anxiety: patient used previously, asked for a refill - Venlafaxine for depression: dose not mentioned - Cetirizine as needed for allergies - Zepbound 10 mg for weight loss (medication not active currently) - Doxycycline (recent prescription for a resolved boil) Problem List - Anxiety - Depression - Allergic Rhinitis - Weight Management - Recurrent Skin Boils Diagnostic results - Labs from December of last year indicate normal CBC, stable electrolytes, intact kidney function, fasting sugar of 99, stable liver enzymes, LDL of 113, vitamin D of 33, and TSH was 2.64. Patient Instructions - Continue taking buspirone and venlafaxine as currently discussed. - Implement lifestyle measures to maintain weight loss, including regular exercise and healthy nutrition. - Schedule and complete the overdue lab tests previously ordered in August. - Consider discussing with insurance about the potential continuation of weight management medications. - Follow up in 4 months for a reevaluation of weight and health status. - Optional flu vaccination: patient agreed to receive one at this visit. Orders: Orders Influenza [id number] Immunization Today Z23 - Encounter for immunization Medications: Changed From buspirone 10 mg PO BID 30 days 60 tabs 0RF F41.1 - Generalized anxiety disorder To buspirone 10 mg PO BID 180 tabs 0RF 90 days F41.1 - Generalized anxiety disorder Refilled venlafaxine ER 150 mg PO DAILY 90 caps 0RF F41.8 - Other specified anxiety disorders
[2024-12-04 08:45] VITALS: BP 140/90; PULSE 71; RESP 15; TEMP 36.9; O2SAT 97; BMI 29.0
[2024-12-04 09:05] VITALS: BP 138/88
== END 2024-12-04 09:03 | disposition home or self-care (01) ==
LOC: HO.HMCC 08:42
PROVIDERS: PCP Internal Medicine; Visit Provider Internal Medicine
DX: F41.1 Generalized anxiety disorder (principal); F33.41 Major depressive disorder, recurrent, in partial remission; Z91.09 Other allergy status, other than to drugs and biological substances; E78.9 Disorder of lipoprotein metabolism, unspecified; R73.03 Prediabetes; Z23 Encounter for immunization

== ENCOUNTER → 2024-12-04 08:41 | Outpatient (BNVA) | payer OTHER, SELFPAY | PROVIDERS: PCP Internal Medicine; Visit Provider Internal Medicine | DX: F41.1 Generalized anxiety disorder (principal); E66.3 Overweight; F33.41 Major depressive disorder, recurrent, in partial remission; R73.03 Prediabetes; R19.7 Diarrhea, unspecified; Z23 Encounter for immunization; Z91.09 Other allergy status, other than to drugs and biological substances; Z68.29 Body mass index [BMI] 29.0-29.9, adult | CPT/HCPCS: 90471; 90656; 96127; 99212 ==